=== PATIENT | male | born 1940 | race Caucasian/White ===

== ENCOUNTER → 2018-01-26 01:50 | Outpatient (CLI) | payer MEDICARE, SELFPAY ==
[2018-01-26 10:10] LABS: INR 2.2 (1.0-3.5); Prothrombin Time 21.2 sec (9.3-10.8)
== END ==
PROVIDERS: PCP Emergency Medicine; Visit Provider Emergency Medicine
DX: I48.91 Unspecified atrial fibrillation (principal); Z79.01 Long term (current) use of anticoagulants
CPT/HCPCS: 36415; 85610

== ENCOUNTER 2018-02-23 10:10 | Outpatient (CLI) | payer MEDICARE, SELFPAY ==
[2018-02-23 10:40] LABS: Prothrombin Time 19.5 sec (9.3-10.8)
== END 2018-02-23 10:30 ==
PROVIDERS: PCP Emergency Medicine; Visit Provider Emergency Medicine
DX: I48.91 Unspecified atrial fibrillation (principal); Z79.01 Long term (current) use of anticoagulants
CPT/HCPCS: 36415; 85610

== ENCOUNTER 2018-03-23 03:05 | Outpatient (CLI) | payer MEDICARE, SELFPAY ==
[2018-03-23 10:47] LABS: INR 2.4 (1.0-3.5); Prothrombin Time 22.8 sec (9.3-10.8)
== END 2018-03-23 03:25 ==
PROVIDERS: PCP Emergency Medicine; Visit Provider Emergency Medicine
DX: I48.91 Unspecified atrial fibrillation (principal); Z79.01 Long term (current) use of anticoagulants
CPT/HCPCS: 36415; 85610

== ENCOUNTER 2018-04-20 09:11 | Outpatient (CLI) | payer MEDICARE, SELFPAY ==
[2018-04-20 09:54] LABS: INR 1.8 (1.0-3.5); Prothrombin Time 16.8 sec (9.3-10.8)
== END 2018-04-20 09:31 ==
PROVIDERS: PCP Emergency Medicine; Visit Provider Emergency Medicine
DX: I48.91 Unspecified atrial fibrillation (principal); Z79.01 Long term (current) use of anticoagulants
CPT/HCPCS: 36415; 85610

== ENCOUNTER 2018-05-18 00:59 | Outpatient (CLI) | payer MEDICARE, SELFPAY ==
[2018-05-18 10:50] LABS: INR 1.7 (1.0-3.5); Prothrombin Time 16.7 sec (9.3-10.8)
== END 2018-05-18 01:19 ==
PROVIDERS: PCP Emergency Medicine; Visit Provider Emergency Medicine
DX: I48.91 Unspecified atrial fibrillation (principal); Z79.01 Long term (current) use of anticoagulants
CPT/HCPCS: 36415; 85610

== ENCOUNTER 2018-06-18 01:48 | Outpatient (CLI) | payer MEDICARE, SELFPAY ==
[2018-06-18 09:17] LABS: INR 2.5 (1.0-3.5); Prothrombin Time 25.4 sec (9.3-11.0)
== END 2018-06-18 02:08 ==
PROVIDERS: PCP Emergency Medicine; Visit Provider Emergency Medicine
DX: I48.91 Unspecified atrial fibrillation (principal); Z79.01 Long term (current) use of anticoagulants
CPT/HCPCS: 36415; 85610

== ENCOUNTER 2018-07-13 01:05 | Outpatient (CLI) | payer MEDICARE, SELFPAY ==
[2018-07-13 10:21] LABS: Prothrombin Time 19.8 sec (9.3-11.0)
== END 2018-07-13 01:25 ==
PROVIDERS: PCP Emergency Medicine; Visit Provider Emergency Medicine
DX: I48.91 Unspecified atrial fibrillation (principal); Z79.01 Long term (current) use of anticoagulants
CPT/HCPCS: 36415; 85610

== ENCOUNTER 2018-08-10 01:10 | Outpatient (CLI) | payer MEDICARE, SELFPAY ==
[2018-08-10 10:34] LABS: INR 2.4 (0.9-1.1); Prothrombin Time 23.8 sec (9.3-11.0)
== END 2018-08-10 01:30 ==
PROVIDERS: PCP Emergency Medicine; Visit Provider Emergency Medicine
DX: I48.91 Unspecified atrial fibrillation (principal); Z79.01 Long term (current) use of anticoagulants
CPT/HCPCS: 36415; 85610

== ENCOUNTER 2018-09-07 01:37 | Outpatient (CLI) | payer MEDICARE, SELFPAY ==
[2018-09-07 10:24] LABS: INR 1.9 (0.9-1.1); Prothrombin Time 19.2 sec (9.3-11.0)
== END 2018-09-07 01:57 ==
PROVIDERS: PCP Emergency Medicine; Visit Provider Emergency Medicine
DX: I48.91 Unspecified atrial fibrillation (principal); Z79.01 Long term (current) use of anticoagulants
CPT/HCPCS: 36415; 85610

== ENCOUNTER 2018-10-05 01:20 | Outpatient (CLI) | payer MEDICARE, SELFPAY ==
[2018-10-05 10:06] LABS: INR 1.9 (0.9-1.1); Prothrombin Time 19.5 sec (9.3-11.0)
== END 2018-10-05 01:40 ==
PROVIDERS: PCP Emergency Medicine; Visit Provider Emergency Medicine
DX: I48.91 Unspecified atrial fibrillation (principal); Z79.01 Long term (current) use of anticoagulants
CPT/HCPCS: 36415; 85610

== ENCOUNTER 2018-11-02 02:18 | Outpatient (CLI) | payer MEDICARE, SELFPAY ==
[2018-11-02 11:01] LABS: INR 1.8 (0.9-1.1); Prothrombin Time 18.4 sec (9.3-11.0)
== END 2018-11-02 02:38 ==
PROVIDERS: PCP Emergency Medicine; Visit Provider Emergency Medicine
DX: I48.91 Unspecified atrial fibrillation (principal); Z79.01 Long term (current) use of anticoagulants
CPT/HCPCS: 36415; 85610

== ENCOUNTER 2018-11-30 02:39 | Outpatient (CLI) | payer MEDICARE, SELFPAY ==
[2018-11-30 10:57] LABS: Prothrombin Time 20.6 sec (9.3-11.0)
== END 2018-11-30 02:59 ==
PROVIDERS: PCP Emergency Medicine; Visit Provider Emergency Medicine
DX: I48.91 Unspecified atrial fibrillation (principal); Z79.01 Long term (current) use of anticoagulants
CPT/HCPCS: 36415; 85610

== ENCOUNTER 2018-12-28 06:59 | Outpatient (CLI) | payer MEDICARE, SELFPAY ==
[2018-12-28 10:08] LABS: INR 1.9 (0.9-1.1); Prothrombin Time 19.3 sec (9.3-11.0)
== END 2018-12-28 07:19 ==
PROVIDERS: PCP Emergency Medicine; Visit Provider Emergency Medicine
DX: I48.91 Unspecified atrial fibrillation (principal); Z79.01 Long term (current) use of anticoagulants
CPT/HCPCS: 36415; 85610

== ENCOUNTER 2019-01-25 03:54 | Outpatient (CLI) | payer MEDICARE, SELFPAY ==
[2019-01-25 09:48] LABS: INR 1.9 (0.9-1.1); Prothrombin Time 19.4 sec (9.3-11.0)
== END 2019-01-25 04:14 ==
PROVIDERS: PCP Emergency Medicine; Visit Provider Emergency Medicine
DX: I48.91 Unspecified atrial fibrillation (principal); Z79.01 Long term (current) use of anticoagulants
CPT/HCPCS: 36415; 85610

== ENCOUNTER 2019-02-08 06:25 | Outpatient (CLI) | payer MEDICARE, SELFPAY ==
[2019-02-08 10:18] LABS: INR 2.7 (0.9-1.1); Prothrombin Time 27.7 sec (9.3-11.0)
== END 2019-02-08 06:45 ==
PROVIDERS: PCP Emergency Medicine; Visit Provider Emergency Medicine
DX: I48.91 Unspecified atrial fibrillation (principal); Z79.01 Long term (current) use of anticoagulants
CPT/HCPCS: 36415; 85610

== ENCOUNTER 2019-03-08 02:07 | Outpatient (CLI) | payer MEDICARE, SELFPAY ==
[2019-03-08 11:27] LABS: Prothrombin Time 19.6 sec (9.3-11.0)
== END 2019-03-08 02:27 ==
PROVIDERS: PCP Emergency Medicine; Visit Provider Emergency Medicine
DX: I48.91 Unspecified atrial fibrillation (principal); Z79.01 Long term (current) use of anticoagulants
CPT/HCPCS: 36415; 85610

== ENCOUNTER 2019-04-05 00:26 | Outpatient (CLI) | payer MEDICARE, SELFPAY ==
[2019-04-05 13:05] LABS: INR 1.9 (0.9-1.1); Prothrombin Time 18.8 sec (9.3-11.0)
== END 2019-04-05 00:46 ==
LOC: LBO 08:27 → LOS 09:22
PROVIDERS: PCP Emergency Medicine; Visit Provider Emergency Medicine
DX: I48.91 Unspecified atrial fibrillation (principal); Z79.01 Long term (current) use of anticoagulants
CPT/HCPCS: 36415; 85610

== ENCOUNTER 2019-05-03 01:53 | Outpatient (CLI) | payer MEDICARE, SELFPAY ==
[2019-05-03 11:40] LABS: INR 1.3 (0.9-1.1); Prothrombin Time 13.4 sec (9.3-11.0)
== END 2019-05-03 02:13 ==
PROVIDERS: PCP Emergency Medicine; Visit Provider Emergency Medicine
DX: I48.91 Unspecified atrial fibrillation (principal); Z79.01 Long term (current) use of anticoagulants
CPT/HCPCS: 36415; 85610

== ENCOUNTER 2019-05-17 01:27 | Outpatient (CLI) | payer MEDICARE, SELFPAY ==
[2019-05-17 10:52] LABS: INR 3.3 (0.9-1.1)
== END 2019-05-17 01:47 ==
PROVIDERS: PCP Emergency Medicine; Visit Provider Emergency Medicine
DX: I48.91 Unspecified atrial fibrillation (principal); Z79.01 Long term (current) use of anticoagulants
CPT/HCPCS: 36415; 85610

== ENCOUNTER 2019-05-24 07:00 | Outpatient (CLI) | payer MEDICARE, SELFPAY ==
[2019-05-24 13:49] LABS: Anion Gap 8.5 mmol/L (3-11); BUN 18 mg/dL (7-18); CO2 27.5 mmol/L (21.0-32.0); CREATININE 1.08 mg/dL (0.70-1.30); Calcium 9.2 mg/dL (8.5-10.1); Calculated LDL 124 mg/dL; Chloride 104 mmol/L (98-107); Cholesterol 199 mg/dL (<200); Glucose 111 mg/dL (74-106); HDL Cholesterol 42 mg/dL (40-60); Potassium 4.5 mmol/L (3.5-5.1); Sodium 140 mmol/L (136-145); Triglyceride 166 mg/dL (<150)
[2019-05-27 12:47] LABS: PSA, Screening 1.1 ng/mL (0.0-6.5)
== END 2019-05-24 07:20 ==
PROVIDERS: PCP Emergency Medicine; Visit Provider Emergency Medicine
DX: I10 Essential (primary) hypertension (principal); Z12.5 Encounter for screening for malignant neoplasm of prostate
CPT/HCPCS: 36415; 80048; 80061; 84153

== ENCOUNTER 2019-05-31 10:12 | Outpatient (CLI) | payer MEDICARE, SELFPAY ==
[2019-05-31 11:17] LABS: INR 2.9 (0.9-1.1); Prothrombin Time 28.3 sec (9.3-11.0)
== END 2019-05-31 10:32 ==
PROVIDERS: PCP Emergency Medicine; Visit Provider Emergency Medicine
DX: I48.91 Unspecified atrial fibrillation (principal); Z79.01 Long term (current) use of anticoagulants
CPT/HCPCS: 36415; 85610

== ENCOUNTER 2019-06-28 02:38 | Outpatient (CLI) | payer MEDICARE, SELFPAY ==
[2019-06-28 10:16] LABS: Prothrombin Time 34.5 sec (9.3-11.0)
[2019-06-28 10:20] LABS: INR 3.5 (0.9-1.1)
== END 2019-06-28 02:58 ==
PROVIDERS: PCP Emergency Medicine; Visit Provider Emergency Medicine
DX: I48.91 Unspecified atrial fibrillation (principal); Z79.01 Long term (current) use of anticoagulants
CPT/HCPCS: 36415; 85610

== ENCOUNTER 2019-07-12 00:12 | Outpatient (CLI) | payer MEDICARE, SELFPAY ==
[2019-07-12 09:34] LABS: INR 2.6 (0.9-1.1); Prothrombin Time 25.1 sec (9.3-11.0)
== END 2019-07-12 00:32 ==
PROVIDERS: PCP Emergency Medicine; Visit Provider Emergency Medicine
DX: I48.91 Unspecified atrial fibrillation (principal); Z79.01 Long term (current) use of anticoagulants
CPT/HCPCS: 36415; 85610

== ENCOUNTER 2019-08-09 00:56 | Outpatient (CLI) | payer MEDICARE, SELFPAY ==
[2019-08-09 09:33] LABS: Prothrombin Time 24.1 sec (9.3-11.0)
[2019-08-09 09:39] LABS: INR 2.4 (0.9-1.1)
== END 2019-08-09 01:16 ==
PROVIDERS: PCP Emergency Medicine; Visit Provider Emergency Medicine
DX: I48.91 Unspecified atrial fibrillation (principal); Z79.01 Long term (current) use of anticoagulants
CPT/HCPCS: 36415; 85610

== ENCOUNTER 2019-09-06 02:02 | Outpatient (CLI) | payer MEDICARE, SELFPAY ==
[2019-09-06 09:16] LABS: INR 2.4 (0.9-1.1); Prothrombin Time 23.4 sec (9.3-11.0)
== END 2019-09-06 02:22 ==
PROVIDERS: PCP Emergency Medicine; Visit Provider Emergency Medicine
DX: I48.91 Unspecified atrial fibrillation (principal); Z79.01 Long term (current) use of anticoagulants
CPT/HCPCS: 36415; 85610

== ENCOUNTER 2019-10-04 08:31 | Outpatient (CLI) | payer MEDICARE, SELFPAY ==
[2019-10-04 14:46] LABS: INR 2.1 (0.9-1.1); Prothrombin Time 20.7 sec (9.3-11.0)
== END 2019-10-04 08:51 ==
PROVIDERS: PCP Emergency Medicine; Visit Provider Emergency Medicine
DX: I48.91 Unspecified atrial fibrillation (principal); Z79.01 Long term (current) use of anticoagulants
CPT/HCPCS: 36415; 85610

== ENCOUNTER 2019-11-01 02:38 | Outpatient (CLI) | payer MEDICARE, SELFPAY ==
[2019-11-01 09:59] LABS: INR 2.9 (0.9-1.1); Prothrombin Time 28.7 sec (9.3-11.0)
== END 2019-11-01 02:58 ==
PROVIDERS: PCP Emergency Medicine; Visit Provider Emergency Medicine
DX: I48.91 Unspecified atrial fibrillation (principal); Z79.01 Long term (current) use of anticoagulants
CPT/HCPCS: 36415; 85610

== ENCOUNTER 2019-11-15 01:43 | Outpatient (CLI) | payer MEDICARE, SELFPAY ==
[2019-11-15 12:04] LABS: INR 3.7 (0.9-1.1); Prothrombin Time 36.4 sec (9.3-11.0)
== END 2019-11-15 02:03 ==
PROVIDERS: PCP Emergency Medicine; Visit Provider Emergency Medicine
DX: I48.91 Unspecified atrial fibrillation (principal); Z79.01 Long term (current) use of anticoagulants
CPT/HCPCS: 36415; 85610

== ENCOUNTER 2019-12-09 19:37 | Emergency (ER) | payer MEDICARE, SELFPAY ==
--- NOTE | 2019-12-09 19:31 | W.ED.GENAD ---
Discharge Plan Disposition Patient Disposition: HOME Condition: Good Discharge Details Chief Complaint: Trauma Clinical Impression: Humeral fracture Primary Care Provider: Aditya Perera ED Provider: Loretta Richards Home Meds and New Rx's Prescriptions: Continued diltiazem HCl [Cardizem CD] 240 mg capsule,extended release 24hr 240 mg PO DAILY Qty: 90 RF: 4 lisinopril 30 mg tablet 30 mg PO DAILY Qty: 90 RF: 4 metoprolol tartrate 25 mg tablet 25 mg PO DAILY Qty: 90 RF: 4 metoprolol tartrate 50 mg tablet 50 mg PO BID Qty: 180 RF: 4 warfarin [Coumadin] 5 mg tablet 5 mg PO QPM Qty: 200 RF: 8 Discharge Instructions Instructions: Arm Fracture in Adults (ED) Additional Instructions: Encourage rest, ice, elevation. Tylenol as needed for discomfort. Please continue to use a sling until evaluated by orthopedics. Please call orthopedics tomorrow, number listed below. They expect to see you in 1 week. If you develop increased pain, weakness, sensation changes or other new/worsening symptom please seek care urgently once again. Referrals: Angel Benítez MD [ [facility] STAFF PHYSICIAN] - Discharge Data Discharge Date/Time-TO BE ENTERED AT DEPARTURE: 12/09/19 21:40 Medical Decision Making Patient is a pleasant [id number] 79-year-old gentleman presenting today, brought in via EMS, chief complaint of right Arm pain. He reports that prior to arrival he had been working on a tractor. He reports the tractor began to roll over and he jumped from it and landed directly on his right shoulder. He indicates the midshaft humerus is area of maximal discomfort. He denies any other injury the time the incident. Denies striking his head, no loss of consciousness. Denies any neck or back pain. Denies any shortness of breath or chest pain. No nausea, vomiting. No incontinence. Denies any altered sensation. No previous injury or surgery to the affected arm. Patient is anticoagulated chronically on warfarin. On exam, patient is resting comfortably. He did receive 1 g of Tylenol by EMS and is declining any further pain management techniques here. No evidence of head trauma, intact neurologic exam, ANO x3. He has no pain with palpation about the spine, no paraspinal tenderness, full range of motion. No chest, abdomen or pelvic pain. No instability. Good range of motion of his lower extremities without any evidence of significant trauma. He does have 1 small area of ecchymosis on the anterior mid right thigh. No pain with movement over this area. 2+ distal pulses in all extremities. He is 5 and 5 strength in the right hand, is able to extend the wrist, no neuro deficits on the right side. Full range motion of the elbow. He indicates the midshaft humerus is area of maximal discomfort. He does have a small focal area of swelling on the right anterior shoulder. This is quite soft and consistent with likely hematoma although there is no discoloration associated with this area as of yet. Range of motion of the shoulder was not assessed given the patient discomfort in this area as well as finding on exam. I am concerned for fracture and do feel that humeral x-rays is appropriate. Based on history and exam, do not feel that further imaging is warranted at this time. X-rays reviewed by myself. I do note comminuted displaced humeral neck fracture. Will consult orthopedics. Again, patient does not have any evidence of neurovascular impairment. Consulted with Dr. Benítez discussed with the comminuted and displaced humeral fracture. He advised sling and follow-up with orthopedics in 1 week. Discussed this plan with the patient as well as his . Encourage rest, ice, elevation. We discussed home techniques to help with discomfort. We discussed activities that he should avoid during the acute phase. His will call orthopedics tomorrow morning to schedule follow-up appointment. They are given strict return precautions. All the questions concerns were addressed and they are agreement this plan. Patient has declined any further analgesics while here, they will continue with Tylenol to help with discomfort if needed. [facility] General Mode of arrival: EMS. Date/Time Provider Initiated Documentation: 12/09/19 19:47. Limitations to Documentation: no limitations. Information obtained by: patient, EMS and RN notes reviewed. History of Present Illness 79 year old M presents to the emergency department with the chief complaint of right shoulder pain, described as mild, Quality is described as aching, and is localized to the right and upper extremity. Patient reports no radiation. Patient started experiencing this minute(s) and it has been constant. Immobilization improves symptom(s), (minimal pain at this time) Movement worsens symptoms . Patient notes no other symptoms.. Patient did receive the following treatments prior to arrival, other (received tylenol from EMS) Related Data Home Medications Medication Instructions Recorded Confirmed diltiazem HCl 240 mg 240 mg PO DAILY #90 tab-cap 11/21/18 12/09/19 capsule,extended release 24 hr lisinopril 30 mg tablet 30 mg PO DAILY #90 tab-cap 11/21/18 12/09/19 metoprolol tartrate 25 mg tablet 25 mg PO DAILY #90 tab-cap 11/21/18 12/09/19 metoprolol tartrate 50 mg tablet 50 mg PO BID #180 tab-cap 12/10/18 12/09/19 warfarin 5 mg tablet 5 mg PO QPM #200 tab 05/31/19 12/09/19 Previous Rx's Medication Instructions Recorded diltiazem HCl 240 mg 240 mg PO DAILY #90 tab-cap 11/21/18 capsule,extended release 24 hr lisinopril 30 mg tablet 30 mg PO DAILY #90 tab-cap 11/21/18 metoprolol tartrate 25 mg tablet 25 mg PO DAILY #90 tab-cap 11/21/18 metoprolol tartrate 50 mg tablet 50 mg PO BID #180 tab-cap 12/10/18 warfarin 5 mg tablet 5 mg PO QPM #200 tab 05/31/19 Allergies Allergy/AdvReac Type Severity Reaction Status Date / Time amlodipine AdvReac Intermediate CAUSED Verified 12/09/19 19:54 POUNDING IN THE HEAD fenofibrate AdvReac Intermediate MYALGIAS Verified 12/09/19 19:54 hydrochlorothiazide AdvReac Mild FATIGUE Verified 12/09/19 19:54 Review of Systems Constitutional Constitutional: Reports as per HPI, Denies chills, Denies fatigue, Denies fever(s), Denies headache(s) and Denies weakness Eyes Eyes: Reports as per HPI, Denies blurry vision, Denies change in vision and Denies loss of vision ENT Ears, Nose, Mouth, and Throat: Denies abnormal hearing and Denies headache(s) Cardiovascular Cardiovascular: Reports as per HPI, Denies chest pain and Denies dyspnea Respiratory Respiratory: Reports as per HPI, Denies cough, Denies pain on inspiration, Denies pain with cough and Denies dyspnea Gastrointestinal Gastrointestinal: Reports as per HPI, Denies abdominal pain, Denies nausea and Denies vomiting Genitourinary Genitourinary: Reports as per HPI and Denies urinary incontinence Musculoskeletal Musculoskeletal: Reports as per HPI Integumentary/Breasts Skin/Breast: Reports as per HPI and Denies rash Neurologic Neurologic: Reports as per HPI, Denies abnormal hearing, Denies abnormal movements, Denies abnormal speech, Denies headache(s), Denies lack of coordination, Denies localized weakness, Denies loss of vision, Denies seizure-like activity, Denies paresthesias and Denies weakness Endocrine Endocrine: Denies fatigue [facility] Medical History Impacted cerumen of both ears (Acute) Memory change (Acute) Surgical History Repair of inguinal hernia 10/23/15; LEFT; [facility] Tonsillectomy and adenoidectomy Vasectomy Social History Smoking/Tobacco Use Status: Former Tobacco Use Alcohol Intake: current Alcohol Intake frequency: holidays/special occasions only Drug use: Never Substance use type: does not use Pets and animals: No Special rob needs: No Do you feel safe at home: Yes Do you feel safe in your relationship?: Yes Exam Const General: cooperative, healthy appearing, comfortable, no acute distress, well developed and well groomed Nutritional Appearance: average body habitus and well nourished Orientation: alert, awake and oriented x3 HENMT Head: normal to inspection, no palpable skull fracture, normocephalic and atraumatic Ears: hearing grossly normal bilaterally, external ears normal and TM's normal bilaterally General nose exam: external nose normal Mouth: oral mucosae normal, lip normal and tongue normal Throat: posterior oropharynx normal Eyes General: appearance normal, both eyes and all related structures Visual Stout: normal visual stout by confrontation Alignment and Position: alignment normal Periorbital: periorbital findings normal Eyelids: eyelids normal Conjunctivae: conjunctivae normal Pupils: PERRL EOM: EOM intact bilaterally Neck Neck: normal visual inspection, full ROM, no lymphadenopathy, no meningeal signs, trachea midline and supple Chest Chest: normal inspection of the chest, normal palpation of entire chest wall, no crepitus and no localized rib tenderness Resp Effort & Inspection: normal respiratory effort, able to speak in complete sentences and no respiratory distress Auscultation: clear to auscultation bilaterally, no rales, no rhonchi and no wheezes Cardio Rate: regular rate Rhythm: regular rhythm Heart Sounds: S1 normal and S2 normal GI Inspection: normal to inspection, no abdominal wall ecchymosis, no edema and non-distended Palpation: soft, no hepatosplenomegaly, not firm, no guarding, no pulsatile masses, not rigid and nontender Auscultation: normal bowel sounds Back/Spine/Pelvis Back: no CVA tenderness Cervical Spine: normal cervical lordosis and cervical ROM normal Thoracic/Lumbar Spine: thoracic and lumbar spine normal to inspection, thoraco-lumbar ROM normal, No thoraco-lumbar ROM limited, No thoraco-lumbar spasm and No thoracic spinal tenderness Pelvis: no pain with anterior-posterior compression and no pain with lateral compression Skin General skin exam: ecchymosis (small area of ecchymosis right anterior thigh) and other (soft tissue swelling right anterior shoulder) Neuro General: patient alert, patient awake, patient oriented x3, gait normal, tone normal and moves all extremities Cranial Nerves: CN's II-XI intact bilaterally Cognition: normal cognition Speech: speech normal Motor: muscle tone normal throughout and strength 5/5 throughout Sensory Exam: no sensory deficits noted (no saddle paresthesias) Extrem General: capillary refill normal, no pedal edema and no calf tenderness Right upper extremity: normal capillary refill, shoulder/upper arm Details: abnormal to inspection (as drawn below) Details: no obvious dislocation, no A-C step-off, no clavicle deformity and no loss of deltoid contour, tenderness Location: of the proximal humerus and over the biceps tendon, swelling and axillary nerve sensory function normal; no abrasions, no lacerations, no ecchymosis, no crepitus and no deformity, elbow/forearm Details: normal to inspection, normal ROM and distal pulses intact; no tenderness, no swelling, no unusual warmth, no abrasions, no lacerations, no ecchymosis and no deformity, wrist Details: normal to inspection, normal ROM, normal vascular exam and radial pulse present; no tenderness, no swelling, no unusual warmth, no abrasions, no lacerations, no ecchymosis, no crepitus and no deformity and hand Details: normal to inspection, normal capillary refill, neuromotor exam normal, neurosensory exam normal, vascular exam Details: radial pulse present and normal capillary refill, normal ROM of fingers and no swelling; no tenderness and no crepitus; abnormal to inspection (focal area of swelling right anterior swelling), ROM limited (will hold off on ranging until imaging is completed) and joint enlargement noted Left upper extremity: normal to inspection, full ROM and normal capillary refill Right lower extremity: normal to inspection (small area of ecchymosis right anterior thigh, no other abnormality), normal capillary refill and no joint enlargement; ROM limited Left lower extremity: normal to inspection, full ROM and normal capillary refill Psych Appearance: grossly normal and well kempt Mental Status: mental status grossly normal Speech and Movement: speech and movement normal
[2019-12-09 19:40] VITALS: BP 156/93; PULSE 99; RESP 16; TEMP 36.6; O2SAT 97
--- NOTE | 2019-12-09 19:45 | DI.RAD_ITS ---
EXAM: XR HUMERUS RT CLINICAL HISTORY: fall on lateral shoulder TECHNIQUE: COMPARISON: No exams were available for comparison FINDINGS: Three views were obtained. There is a comminuted fracture of the proximal humerus with moderate disp lacement the glenohumeral relationship is not well demonstrated. Additional radiographs of the shoul mimi may be obtained if clinically appropriate. IMPRESSION:
--- NOTE | 2019-12-09 20:40 | DI.VRAD_ITS ---
PROCEDURE INFORMATION: Exam: XR Right Humerus Exam date and time: 12/09/2019 8:14 PM Age: 79 years old Clinical indication: Injury or trauma; Initial encounter; Blunt trauma (contusions or hematomas; Right; Patient HX: Fall on lateral shoulder TECHNIQUE: Imaging protocol: XR Right humerus Views: 2 or more views. COMPARISON: No relevant prior studies available. FINDINGS: Bones/joints: Evaluation is limited by patient positioning. There is a comminuted fracture of the proximal right humerus. There is mild angulation and overriding. Mild to moderate displacement of the fracture fragments. No obvious dislocation. Soft tissues: Soft tissue swelling. IMPRESSION: 1. Comminuted proximal right humerus fracture. 2. Suggest dedicated shoulder x-ray for better evaluation of the glenohumeral joint. Dictated and Authenticated by: Julio Diane MD. Ordering:KWABENA Burgos MD
[2019-12-09 21:36] VITALS: BP 135/80; PULSE 104; RESP 16; O2SAT 95
== END 2019-12-09 21:40 | disposition home or self-care (01) ==
PROVIDERS: Emergency Provider Physician Assistant; PCP Emergency Medicine
DX: S42.291A Other displaced fracture of upper end of right humerus, initial encounter for closed fracture (principal); S70.11XA Contusion of right thigh, initial encounter; W28.XXXA Contact with powered lawn mower, initial encounter
CPT/HCPCS: 23600; 73060; L3650

== ENCOUNTER 2019-12-11 16:22 | Emergency (ER) | payer MEDICARE, SELFPAY ==
[2019-12-11 16:15] VITALS: BP 130/84; PULSE 106; RESP 18; TEMP 36.6; O2SAT 94
[2019-12-11 16:21] VITALS: RESP 15
[2019-12-11 17:18] LABS: INR 3.6 (0.9-1.1); Magnesium 1.9 mg/dL (1.8-2.4); Prothrombin Time 35.2 sec (9.3-11.0); TSH 0.99 uIU/mL (0.36-3.74); Troponin I < 0.05 ng/mL (<0.06)
[2019-12-11 17:20] LABS: ALT 14 U/L (16-63); AST 24 U/L (15-37); Albumin 3.5 g/dL (3.4-5.0); Alkaline Phosphatase 75 U/L (46-116); Anion Gap 9.9 mmol/L (3-11); BUN 21 mg/dL (7-18); Bilirubin Negative (Negative); Bilirubin, Total 1.2 mg/dL (0.2-1.0); Blood Negative (Negative); CO2 24.1 mmol/L (21.0-32.0); CREATININE 1.25 mg/dL (0.70-1.30); Chloride 101 mmol/L (98-107); Clarity Clear (Clear); Estimated GFR 55.72 (mL/min/1.73m2); Glucose 113 mg/dL (74-106); Glucose Negative (Negative); Ketones Negative (Negative); Leukocyte Esterase Negative (Negative); Nitrite Negative (Negative); Potassium 4.3 mmol/L (3.5-5.1); Sodium 135 mmol/L (136-145); Total Protein 7.6 g/dL (6.4-8.2); Urobilinogen 0.2 EU/dL (Up TO 0.2)
[2019-12-11 17:30] LABS: HCT 46.3 % (40.0-50.0); HGB 15.5 g/dL (13.5-17.5); Mean Corp. HGB Concentration 33.5 g/dL (32.0-36.0); Mean Corpuscular Hemoglobin 28.5 pg (27.0-33.0); Mean Corpuscular Volume 85.3 fL (80-95); Mean Platelet Volume 11.2 fL (8.0-11.0); Platelet Count 237 x1000/uL (130-400); RBC 5.43 m/cumm (4.50-6.00); RBC Distribution Width 14.5 % (11.8-14.1); White Blood Cell Count 11.92 k/cumm (4.4-10.8)
--- NOTE | 2019-12-11 17:30 | DI.CT_ITS ---
EXAM: CT HEAD WO CLINICAL HISTORY: Confusion, accident 2 days ago, anticoagulated TECHNIQUE: COMPARISON: No exams were available for comparison FINDINGS: Noncontrast cranial CT was performed. There is moderate generalized cerebral atrophy. There are sub tle patchy areas of decreased attenuation in periventricular white matter consistent with microvascul ar ischemic change, probable tiny bilateral lacunar infarcts are also noted and there is decreased at tenuation in sub insular cortex anteriorly also consistent with chronic vascular disease. No evidenc e of acute intracranial hemorrhage, mass effect, or midline shift. The orbital and temporal bone structures appear intact. Visualized mastoid air cells and paranasal s inuses are clear. IMPRESSION: No evidence of acute intracranial process.
--- NOTE | 2019-12-11 17:33 | DI.RAD_ITS ---
EXAM: XR CHEST 1V IN DI DEPT CLINICAL HISTORY: ams TECHNIQUE: COMPARISON: CR CHEST 2 VIEWS PA,LAT from 07/10/2013 FINDINGS: Portable AP view was obtained. The heart is not enlarged. There is a poor inspiration. There is qu estion of slightly increased pulmonary markings at left lung base in comparison with prior film of radha 2013, this may reflect scarring but possibility of acute atelectasis or patchy consolidation is not excluded. Follow-up radiographs requested when clinically appropriate. IMPRESSION:
--- NOTE | 2019-12-11 17:41 | DI.VRAD_ITS ---
PROCEDURE INFORMATION: Exam: XR Chest, 1 View Exam date and time: 12/11/2019 5:28 PM Age: 79 years old Clinical indication: AMS TECHNIQUE: Imaging protocol: XR of the chest Views: 1 view. COMPARISON: CR CHEST 2 VIEWS PA,LAT 07/10/2013 1:14 PM FINDINGS: Lungs: Clear lungs. Pleural space: No pneumothorax. No sizable pleural effusion. Heart/Mediastinum: No cardiomegaly. Bones/joints: Unremarkable. IMPRESSION: Clear lungs. Dictated and Authenticated by: Peter Mackenzie MD. Ordering:JANET Barcenas MD
--- NOTE | 2019-12-11 17:51 | DI.VRAD_ITS ---
PROCEDURE INFORMATION: Exam: CT Head Without Contrast Exam date and time: 12/11/2019 4:43 PM Age: 79 years old Clinical indication: AMS TECHNIQUE: Imaging protocol: Computed tomography of the head without contrast. Radiation optimization: All CT scans at this facility use at least one of these dose optimization techniques: automated exposure control; mA and/or kV adjustment per patient size (includes targeted exams where dose is matched to clinical indication); or iterative reconstruction. COMPARISON: No relevant prior studies available. FINDINGS: Brain: Age-related involutional changes and chronic microvascular ischemic disease. No evidence for acute transcortical infarct. No mass effect or midline shift. No extra-axial collection. No acute intracranial hemorrhage. Basal cisterns are patent. Ventricles: Normal. No ventriculomegaly. Bones/joints: Unremarkable. No acute fracture. Sinuses: Visualized sinuses are unremarkable. No fluid levels. Mastoid air cells: Visualized mastoid air cells are well aerated. Soft tissues: Unremarkable. IMPRESSION: No evidence for acute transcortical infarct, acute intracranial hemorrhage, or mass effect. Dictated and Authenticated by: Peter Mackenzie MD. Ordering:JANET Barcenas MD
--- NOTE | 2019-12-11 18:32 | ED.GENADUL_ITS ---
Discharge Plan Disposition Patient Disposition: HOME Condition: Stable Discharge Details Chief Complaint: AMS/LOC Clinical Impression: Confusion, Humeral fracture, Elevated INR Primary Care Provider: Aditya Perera ED Provider: Narinder Shay Home Meds and New Rx's Prescriptions: Continued diltiazem HCl [Cardizem CD] 240 mg capsule,extended release 24hr 240 mg PO DAILY Qty: 90 RF: 4 lisinopril 30 mg tablet 30 mg PO DAILY Qty: 90 RF: 4 metoprolol tartrate 25 mg tablet 25 mg PO DAILY Qty: 90 RF: 4 metoprolol tartrate 50 mg tablet 50 mg PO BID Qty: 180 RF: 4 warfarin [Coumadin] 5 mg tablet 5 mg PO QPM Qty: 200 RF: 8 Discharge Instructions Instructions: Arm Fracture in Adults (ED), Altered Mental Status (ED), Elevated INR (ED) Additional Instructions: At this time there is no obvious emergent process identified here in the ER. Your INR is elevated. Recommend holding your Coumadin dose tonight and tomorrow, you will need to have your INR rechecked on Monday and then be instructed as to how to begin taking your Coumadin once again. Please watch for new or worsening symptoms and return to the ER for any concerns. Please contact your primary care provider tomorrow for reevaluation on Monday. Please follow-up with orthopedics in 1 week as already scheduled. I have reached out to our care management team so that they will be in contact with you in the next 24 hours to help be sure that you are home resources and needs are met. Discharge Data Discharge Date/Time-TO BE ENTERED AT DEPARTURE: 12/11/19 19:20 Medical Decision Making 79-year-old gentleman who was evaluated in the ER 2 days ago, comminuted humeral fracture, presents today via EMS for intermittent increased confusion and increased right arm pain. Patient currently tells me his pain is minimal and he is otherwise unsure why he is here. He does remember the accident 2 days ago. After speaking with his it was more clear why he presented to the ER today. He had increasing pain as he was trying to get up out of the chair using his right arm because she feels as though he forgot it was actually broken. They are seeing orthopedics next week as already scheduled and are in the process of getting outpatient home health. She believes that his memory is getting worse on a progressive nature but may be slightly worse given his increased pain. Denies trauma since the evaluation 2 days ago. Denies any other symptoms. Given his slightly increased intermittent confusion, I do believe initiating a work-up is reasonable, CBC, CMP, Trope, EKG, head CT given he is anticoagulated, INR, urinalysis. As my examination states, he does have a hematoma and tenderness over his right mid-upper humerus region but is neuro, vascular, tendon intact. Certainly no signs of compartment syndrome. Laboratory values reveal a WBC of 11.92 hemoglobin 15.5 hematocrit 46.3 platelet count 237. INR is 3.6. Sodium 135 potassium 4.3 creatinine 1.25 estimated GFR 55.72. Mag 1.9. Troponin less than 0.05. TSH 0.99. Urinalysis does not reveal signs of infection. Head CT negative per radiology. Chest x-ray negative per radiology. Work-up here in the ER is rather unremarkable. I discussed the spine work-up with patient who only reports mild pain in his right arm. He was able to ambulate steadily throughout the ER. I contacted his once again and we discussed the work-up. She is relieved and feels as though she has the resources needed to care for him in the meantime. She already has orthopedic follow-up 1 week from today. Home health is getting involved tomorrow. I did explain to her that his INR was 3.6 and not taking a dose of Coumadin today and tomorrow would be recommended, outpatient follow-up on Monday for repeat INR nalini ting and then discussion of how to reinstate the Coumadin therapy. I also placed him on the care management list once again to see if there are any additional resources that may be beneficial to add on at home. At this time patient does not require any analgesia treatment. He is already wearing a sling. Patient and patient's comfortable with this plan and have no additional questions or concerns. We discussed options of transport home, she is happy to come pick him up. I did discuss the case and disposition with Dr. Capps prior to discharge. Medical Records Medical records reviewed: Yes I reviewed the patient's medical records. Imaging Data Radiologic Study: Attestation: I personally reviewed and interpreted this imaging study as follows: Radiologist's impression: Chest x-ray negative Radiologic Study #2: Attestation: I personally reviewed and interpreted this imaging study as follows: Imaging: CT Scan Radiologist's impression: Head CT no acute abnormalities Lab Data Lab results reviewed: Yes I reviewed the patient's lab results. Labs: Laboratory Tests Range/Units 12/11/19 12/11/19 12/11/19 16:30 16:30 16:30 WBC (4.4-10.8) k/cumm 11.92 H RBC (4.50-6.00) m/cumm 5.43 Hgb (13.5-17.5) g/dL 15.5 Hct (40.0-50.0) % 46.3 MCV (80-95) fL 85.3 MCH (27.0-33.0) pg 28.5 MCHC (32.0-36.0) g/dL 33.5 RDW (11.8-14.1) % 14.5 H Plt Count (130-400) x1000/uL 237 MPV (8.0-11.0) fL 11.2 H PT (9.3-11.0) sec 35.2 H INR (0.9-1.1) 3.6 H Sodium (136-145) mmol/L 135 L Potassium (3.5-5.1) mmol/L 4.3 Chloride (98-107) mmol/L 101 Carbon Dioxide (21.0-32.0) mmol/L 24.1 Anion Gap (3-11) mmol/L 9.9 BUN (7-18) mg/dL 21 H Creatinine (0.70-1.30) mg/dL 1.25 Estimated GFR/1.73 m2 (mL/min/1.73m2) 55.72 Glucose (74-106) mg/dL 113 H Calcium (8.5-10.1) mg/dL 9.0 Magnesium (1.8-2.4) mg/dL Total Bilirubin (0.2-1.0) mg/dL 1.2 H AST (15-37) U/L 24 ALT (16-63) U/L 14 L Alkaline Phosphatase (46-116) U/L 75 Troponin I (<0.06) ng/mL Total Protein (6.4-8.2) g/dL 7.6 Albumin (3.4-5.0) g/dL 3.5 TSH (0.36-3.74) uIU/mL Urine Color (Yellow) Urine Clarity (Clear) Urine pH (5-8) Ur Specific [place] (1.005-1.025) Urine Protein (Negative) mg/dL Urine Ketones (Negative) mg/dL Urine Blood (Negative) Urine Nitrite (Negative) Urine Bilirubin (Negative) Urine Urobilinogen (Up TO 0.2) EU/dL Ur Leukocyte Esterase (Negative) Urine Glucose (Negative) mg/dL Range/Units 12/11/19 12/11/19 16:30 16:30 WBC (4.4-10.8) k/cumm RBC (4.50-6.00) m/cumm Hgb (13.5-17.5) g/dL Hct (40.0-50.0) % MCV (80-95) fL MCH (27.0-33.0) pg MCHC (32.0-36.0) g/dL RDW (11.8-14.1) % Plt Count (130-400) x1000/uL MPV (8.0-11.0) fL PT (9.3-11.0) sec INR (0.9-1.1) Sodium (136-145) mmol/L Potassium (3.5-5.1) mmol/L Chloride (98-107) mmol/L Carbon Dioxide (21.0-32.0) mmol/L Anion Gap (3-11) mmol/L BUN (7-18) mg/dL Creatinine (0.70-1.30) mg/dL Estimated GFR/1.73 m2 (mL/min/1.73m2) Glucose (74-106) mg/dL Calcium (8.5-10.1) mg/dL Magnesium (1.8-2.4) mg/dL 1.9 Total Bilirubin (0.2-1.0) mg/dL AST (15-37) U/L ALT (16-63) U/L Alkaline Phosphatase (46-116) U/L Troponin I (<0.06) ng/mL < 0.05 Total Protein (6.4-8.2) g/dL Albumin (3.4-5.0) g/dL TSH (0.36-3.74) uIU/mL 0.99 Urine Color (Yellow) Yellow Urine Clarity (Clear) Clear Urine pH (5-8) 6.0 Ur Specific [place] (1.005-1.025) 1.020 Urine Protein (Negative) mg/dL Negative Urine Ketones (Negative) mg/dL Negative Urine Blood (Negative) Negative Urine Nitrite (Negative) Negative Urine Bilirubin (Negative) Negative Urine Urobilinogen (Up TO 0.2) EU/dL 0.2 Ur Leukocyte Esterase (Negative) Negative Urine Glucose (Negative) mg/dL Negative ECG Data Attestation: I personally reviewed and interpreted this ECG (s) as follows: Interpretation: EKG performed at 1628. A. fib, ventricular rate of 100. No STEMI. HPI General Mode of arrival: EMS . Date/Time Provider Initiated Documentation: 12/11/19 16:40 . Limitations to Documentation: no limitations and altered mental status . Information obtained by: patient, family and EMS . HPI Narrative: This is a 79-year-old gentleman with history of atrial fibrillation, chronic anticoagulation, hyperlipidemia, tension, recent lawnmower accident 2 days ago resulting in an ER visit and fractured humerus. HPI was obtained through patient, EMS, family. Patient was seen in the ER 2 days ago, diagnosed with humeral fracture, and placed due to a sling after orthopedic consultation. Family reports that they are scheduled to see orthopedics 1 week from today. They were set up with care management at the time of the accident and subsequently are in the process of getting home health resources. Patient was doing well yesterday however today patient's reports that his baseline memory impairment seem to be a little bit worse. He was forgetting that he had a broken arm and subsequently it was trying to get up out of the chair using his broken arm which caused increased pain. Throughout the day the combination of worsening memory and increased arm pain made her decide to call EMS for evaluation. There has been no new injury since that time of his ER visit. Patient at 1 point of the HPI tells me he remembers having the accident and injuring his arm and then later tells me he is unsure of what he is doing in the ER today. He denies striking his head, headache, visual changes, neck pain, chest pain, shortness of breath abdominal pain, nausea, vomiting, change in bowel or bladder habit. He does admit to mild discomfort to his right arm, worse with attempting to move his arm. He is wearing a sling. He denies any numbness, tingling, weakness in his extremities. Related Data Home Medications Medication Instructions Recorded Confirmed diltiazem HCl 240 mg 240 mg PO DAILY #90 tab-cap 11/21/18 12/11/19 capsule,extended release 24 hr lisinopril 30 mg tablet 30 mg PO DAILY #90 tab-cap 11/21/18 12/11/19 metoprolol tartrate 25 mg tablet 25 mg PO DAILY #90 tab-cap 11/21/18 12/11/19 metoprolol tartrate 50 mg tablet 50 mg PO BID #180 tab-cap 12/10/18 12/11/19 warfarin 5 mg tablet 5 mg PO QPM #200 tab 05/31/19 12/11/19 Previous Rx's Medication Instructions Recorded diltiazem HCl 240 mg 240 mg PO DAILY #90 tab-cap 11/21/18 capsule,extended release 24 hr lisinopril 30 mg tablet 30 mg PO DAILY #90 tab-cap 11/21/18 metoprolol tartrate 25 mg tablet 25 mg PO DAILY #90 tab-cap 11/21/18 metoprolol tartrate 50 mg tablet 50 mg PO BID #180 tab-cap 12/10/18 warfarin 5 mg tablet 5 mg PO QPM #200 tab 05/31/19 Allergies Allergy/AdvReac Type Severity Reaction Status Date / Time amlodipine AdvReac Intermediate CAUSED Verified 12/09/19 19:54 POUNDING IN THE HEAD fenofibrate AdvReac Intermediate MYALGIAS Verified 12/09/19 19:54 hydrochlorothiazide AdvReac Mild FATIGUE Verified 12/09/19 19:54 General Stated Complaint: AMS/LOC TARUN: 3 Review of Systems Constitutional Constitutional: Denies fatigue, Denies fever(s) and Denies weakness Eyes Eyes: Denies change in vision ENT Ears, Nose, Mouth, and Throat: Denies dizziness, Denies neck pain and Denies sore throat Cardiovascular Cardiovascular: Denies chest pain and Denies dyspnea Respiratory Respiratory: Denies cough and Denies dyspnea Gastrointestinal Gastrointestinal: Denies abdominal pain, Denies nausea and Denies vomiting Genitourinary Genitourinary: Denies dysuria Musculoskeletal Musculoskeletal: Denies back pain, Denies neck pain, Denies numbness and Denies tingling Integumentary/Breasts Skin/Breast: Denies rash Neurologic Neurologic: Denies dizziness, Reports memory loss, Denies numbness, Denies tingling and Denies weakness Psychiatric Psychiatric: Reports memory loss Endocrine Endocrine: Denies fatigue Hematologic/Lymphatic Hematologic/Lymphatic: Denies easy bleeding and Denies easy bruising COUNTS INCLUDE 234 BEDS AT THE [facility] Medical History Impacted cerumen of both ears (Acute) Memory change (Acute) Surgical History Repair of inguinal hernia 10/23/15; LEFT; [facility] Tonsillectomy and adenoidectomy Vasectomy Family History Mother Renal failure Stroke Father Alzheimer disease Myocardial infarction Son No problems noted. Daughter No problems noted. Social History Smoking/Tobacco Use Status: Former Tobacco Use Alcohol Intake: current Alcohol Intake frequency: holidays/special occasions only Drug use: Never Substance use type: does not use Pets and animals: No Special rob needs: No Do you feel safe at home: Yes Do you feel safe in your relationship?: Yes Exam Const General: cooperative, healthy appearing, comfortable and no acute distress Orientation: alert, awake, oriented to person, oriented to place and confused (Patient believes it is Monday, December,) [facility] Head: normal to inspection, normocephalic and atraumatic Face and sinus: normal facial exam Mouth: moist mucous membranes Throat: posterior oropharynx normal Eyes General: appearance normal, both eyes and all related structures Alignment and Position: alignment normal Periorbital: periorbital findings normal Eyelids: eyelids normal Conjunctivae: conjunctivae normal Sclera: sclerae normal Cornea: corneas normal Pupils: PERRL EOM: EOM intact bilaterally Direct ophthalmoscopy: normal light reflex Neck Neck: normal visual inspection, full ROM, no lymphadenopathy, no meningeal signs, trachea midline, supple and nontender Resp Effort & Inspection: normal respiratory effort and able to speak in complete sentences Auscultation: clear to auscultation bilaterally Cardio Rate: regular rate (92) Rhythm: abnormal rhythm irregularly irregular GI Inspection: normal to inspection Palpation: soft and nontender Back/Spine/Pelvis Back: No back tenderness Skin General skin exam: no rashes or lesions noted Neuro General: patient alert, patient awake and no focal motor deficits Cranial Nerves: CN's II-XI intact bilaterally Speech: speech normal Gait: normal gait Motor: muscle tone normal throughout and strength 5/5 throughout Sensory Exam: no sensory deficits noted Extrem Right upper extremity: normal capillary refill, shoulder/upper arm (Wearing a sling) Details: tenderness Location: of the proximal humerus, abnormal ROM Details: held in an abnormal fashion Details: in ADduction and ecchymosis (Proximal and mid humerus), elbow/forearm (Unremarkable), wrist (Unremarkable) and hand (Unremarkable) Left upper extremity: normal to inspection, full ROM and normal capillary refill Right lower extremity: normal to inspection, full ROM and normal capillary refill Left lower extremity: normal to inspection, full ROM and normal capillary refill Psych Appearance: grossly normal Mental Status: mental status grossly normal Course Vital Signs Vital signs: Vital Signs Temperature 36.6 C 12/11/19 16:15 Pulse 106 H 12/11/19 16:15 Respiratory Rate 18 12/11/19 16:15 Blood Pressure 130/84 12/11/19 16:15 Pulse Oximetry 94 L 12/11/19 16:15 Temperature 36.6 C 12/11/19 16:15 Temperature Source Tympanic 12/11/19 16:15 Pulse 106 H 12/11/19 16:15 Respiratory Rate 15 12/11/19 16:21 Respiratory Effort 12/11/19 16:21 Respiratory Depth Normal 12/11/19 16:21 Respiratory Pattern Normal 12/11/19 16:21 Blood Pressure 130/84 12/11/19 16:15 Blood Pressure Position Sitting 12/11/19 16:15 Pulse Oximetry 94 L 12/11/19 16:15 Oxygen Delivery Method Room Air 12/11/19 16:15 Oxygen Flow Rate 0 12/11/19 16:15 Pain Level 8 12/11/19 16:15 Lab/Test Results Lab/Test Results: Laboratory Tests Range/Units 12/11/19 12/11/19 12/11/19 16:30 16:30 16:30 WBC (4.4-10.8) k/cumm 11.92 H RBC (4.50-6.00) m/cumm 5.43 Hgb (13.5-17.5) g/dL 15.5 Hct (40.0-50.0) % 46.3 MCV (80-95) fL 85.3 MCH (27.0-33.0) pg 28.5 MCHC (32.0-36.0) g/dL 33.5 RDW (11.8-14.1) % 14.5 H Plt Count (130-400) x1000/uL 237 MPV (8.0-11.0) fL 11.2 H PT (9.3-11.0) sec 35.2 H INR (0.9-1.1) 3.6 H Sodium (136-145) mmol/L 135 L Potassium (3.5-5.1) mmol/L 4.3 Chloride (98-107) mmol/L 101 Carbon Dioxide (21.0-32.0) mmol/L 24.1 Anion Gap (3-11) mmol/L 9.9 BUN (7-18) mg/dL 21 H Creatinine (0.70-1.30) mg/dL 1.25 Estimated GFR/1.73 m2 (mL/min/1.73m2) 55.72 Glucose (74-106) mg/dL 113 H Calcium (8.5-10.1) mg/dL 9.0 Magnesium (1.8-2.4) mg/dL Total Bilirubin (0.2-1.0) mg/dL 1.2 H AST (15-37) U/L 24 ALT (16-63) U/L 14 L Alkaline Phosphatase (46-116) U/L 75 Troponin I (<0.06) ng/mL Total Protein (6.4-8.2) g/dL 7.6 Albumin (3.4-5.0) g/dL 3.5 TSH (0.36-3.74) uIU/mL Urine Color (Yellow) Urine Clarity (Clear) Urine pH (5-8) Ur Specific [place] (1.005-1.025) Urine Protein (Negative) mg/dL Urine Ketones (Negative) mg/dL Urine Blood (Negative) Urine Nitrite (Negative) Urine Bilirubin (Negative) Urine Urobilinogen (Up TO 0.2) EU/dL Ur Leukocyte Esterase (Negative) Urine Glucose (Negative) mg/dL Range/Units 12/11/19 12/11/19 16:30 16:30 WBC (4.4-10.8) k/cumm RBC (4.50-6.00) m/cumm Hgb (13.5-17.5) g/dL Hct (40.0-50.0) % MCV (80-95) fL MCH (27.0-33.0) pg MCHC (32.0-36.0) g/dL RDW (11.8-14.1) % Plt Count (130-400) x1000/uL MPV (8.0-11.0) fL PT (9.3-11.0) sec INR (0.9-1.1) Sodium (136-145) mmol/L Potassium (3.5-5.1) mmol/L Chloride (98-107) mmol/L Carbon Dioxide (21.0-32.0) mmol/L Anion Gap (3-11) mmol/L BUN (7-18) mg/dL Creatinine (0.70-1.30) mg/dL Estimated GFR/1.73 m2 (mL/min/1.73m2) Glucose (74-106) mg/dL Calcium (8.5-10.1) mg/dL Magnesium (1.8-2.4) mg/dL 1.9 Total Bilirubin (0.2-1.0) mg/dL AST (15-37) U/L ALT (16-63) U/L Alkaline Phosphatase (46-116) U/L Troponin I (<0.06) ng/mL < 0.05 Total Protein (6.4-8.2) g/dL Albumin (3.4-5.0) g/dL TSH (0.36-3.74) uIU/mL 0.99 Urine Color (Yellow) Yellow Urine Clarity (Clear) Clear Urine pH (5-8) 6.0 Ur Specific [place] (1.005-1.025) 1.020 Urine Protein (Negative) mg/dL Negative Urine Ketones (Negative) mg/dL Negative Urine Blood (Negative) Negative Urine Nitrite (Negative) Negative Urine Bilirubin (Negative) Negative Urine Urobilinogen (Up TO 0.2) EU/dL 0.2 Ur Leukocyte Esterase (Negative) Negative Urine Glucose (Negative) mg/dL Negative
[2019-12-11 18:33] VITALS: O2SAT 97
[2019-12-11 18:34] VITALS: BP 146/88; PULSE 111; O2SAT 99
--- NOTE | 2019-12-11 18:55 | NUR.NOTE ---
pt was able to ambulate with stand by assits. pt was confusts however this is baseline for the PT as stated by EMS. pt was stable on feet however PT wll need to be discharged with responcable adult Nursing Note:
[2019-12-11 19:31] VITALS: BP 146/88; PULSE 98; RESP 17; TEMP 37; O2SAT 99
== END 2019-12-11 19:20 | disposition home or self-care (01) ==
PROVIDERS: Emergency Provider Physician Assistant; PCP Emergency Medicine
DX: R41.0 Disorientation, unspecified (principal); S42.291A Other displaced fracture of upper end of right humerus, initial encounter for closed fracture; W28.XXXA Contact with powered lawn mower, initial encounter; R79.1 Abnormal coagulation profile; T45.515A Adverse effect of anticoagulants, initial encounter; Z79.01 Long term (current) use of anticoagulants
CPT/HCPCS: 36415; 80053; 85027; 93005; 99285; 70450; 71045; 81003; 83735; 84443; 84484; 85610; 93010

== ENCOUNTER 2019-12-17 08:36 | Outpatient (CLI) | payer MEDICARE, SELFPAY ==
--- NOTE | 2019-12-17 08:00 | DI.RAD_ITS ---
EXAM: XR SHOULDER RT COMPLETE 2+V CLINICAL HISTORY: right humerus fracture. TECHNIQUE: 2D digital imaging was performed. COMPARISON: CR,XR XR HUMERUS RT from 12/09/2019 CR,XR XR CHEST 1V IN DI DEPT from 12/11/2019 FINDINGS: There is again seen a comminuted fracture of the proximal metadiaphyseal region of the right humerus. The fracture is angulated with the apex directed medially. Fracture fragments are moderately displ aced. There does appear to be increased angulation of the fracture compared to the prior examination . Degenerative changes are seen at the acromioclavicular and glenohumeral joints. There is mild sof t tissue swelling at the proximal arm. IMPRESSION: Comminuted angulated fracture of the proximal right humerus as described above. There does appear to be mild increase in the angulation of the fracture since the prior examination from 12/09/2019. DATA REPOSITORY: RADIATION DOSE DELIVERED:
== END 2019-12-17 08:56 ==
PROVIDERS: PCP Emergency Medicine; Referring Provider Emergency Medicine; Visit Provider Student in an Organized Health Care Education/Training Program
DX: S42.301A Unspecified fracture of shaft of humerus, right arm, initial encounter for closed fracture; X58.XXXA Exposure to other specified factors, initial encounter
CPT/HCPCS: 99204; 99215; 73030

== ENCOUNTER 2019-12-22 04:08 | Observation (INO) | payer MEDICARE, SELFPAY ==
[2019-12-22] VITALS (7 sets, daily range): BP systolic 120–158; BP diastolic 69–96; PULSE 92–115; RESP 16–20; TEMP 36.1–37.1; O2SAT 96–100
--- NOTE | 2019-12-22 04:11 | W.ED.GENAD ---
Discharge Plan Discharge Details Chief Complaint: GenMedical Admit Date/Time: 12/22/19 12:11 Admit Provider: Sari Ramirez Attending Provider: Sari Ramirez Primary Care Provider: Aditya Perera ED Provider: Loretta Richards Discharge Data Discharge Date/Time-TO BE ENTERED AT DEPARTURE: 12/22/19 13:34 Medical Decision Making <Maury Cannon MD - Last Filed: 12/22/19 06:14> 79 yo male with hx of dementia, afib, who sustained a right humerus fracture after falling of a lawnmower in November and since then has had difficulties sleeping which has been causing him to sundown and become agitated. Since the fall he has had reassuring ct of his head and labs and despite this is becoming more agitated mainly at night. Tonight he as having trouble sleeping due to the arm and per his son Maury was agitated and he felt unsafe as did his so they called EMS as they feel he needs to be in rehab. The pt arrives and knows his name that he is at [facility] and the year is 2019 but is unsure of time. He has no focal neuro deficits. No pain other than in proximal right humerus. I do not feel there is an emergent underlying cause for his agitation other than underlying dementia and sundowning. I spoke with Morena from care management who is going to assess him this morning pt sleeping in no distress HD stable, awaiting care management Differential Diagnosis Differential Diagnosis: dementia, sundowning <THU Garcia - Last Filed: 12/22/19 16:44> Care transition myself from Dr. Cannon with care management assessment pending. Patient is known to myself. Please see Dr. Cannon's note regarding initial history and assessment. In brief, patient suffered a right humeral fracture 2 weeks ago. Since that time, since that he has been sundowning more and that he has been having difficulty at home. Has not been sleeping well. Has not suffered further trauma as far as we are aware. Family at this time does not feel that the patient is able to stay at home secondary to his confused state. Said that he has been escalating at home particularly at night. At this time, he is eating breakfast but is preferring to pace above department. CPS O has been ordered. Patient is wanting to go home. He is clearly confused. Urine shows small amount of blood. Care management spoke with family. At this point, patient will need placement. However, this is unable to be obtained today and inpatient admission would be appropriate. Patient is not safe at home and stabilization prior to being discharged home. Hospitalist is concerned that patient may have change in underlying medical condition, particularly given his recent fall. Requested CT and labs. Head CT was reviewed by radiologist FINDINGS: Brain: Hypodensity is seen in the periventricular cerebral white matter. This change is nonspecific but is most likely secondary to chronic ischemia within microvascular distributions. Goodman white matter distinction is maintained throughout the brain. No radiographic evidence of intracranial hemorrhage. Ventricles: Ventricles are enlarged on the basis of mild diffuse cerebral volume loss. Bones/joints: Unremarkable. No acute fracture. Sinuses: Visualized sinuses are unremarkable. No fluid levels. Mastoid air cells: Visualized mastoid air cells are well aerated. Soft tissues: Unremarkable. Other findings: No intra or extra-axial masses, lesions or collections. IMPRESSION: No radiographic evidence of acute intracranial pathology. Labs reviewed. No leukocytosis. H&H is stable. INR is elevated at 3.1. Patient is on warfarin. CMP significant for slight elevation in his ALT [place]. Otherwise without significant abnormality. Patient is eating and drinking. CPS so is at bed side. I did speak with the patient's son. He and I discussed the findings of the CT and labs. I did review primary care notes once again. Patient was evaluated approximately 2 weeks prior to his fall at which time he failed his Mini-Mental status exam as he was unable to draw a clock face. Family had noted the patient to have increased confusion prior to the fall. Patient has been easily redirectable and cooperative here. Consulted with Dr. Ramirez who agrees to admission.. HPI <Maury Cannon MD - Last Filed: 12/22/19 06:14> General Mode of arrival: EMS. Date/Time Provider Initiated Documentation: 12/22/19 04:11. Information obtained by: family. History of Present Illness 79 year old M presents to the emergency department with the chief complaint of agitated at home, described as moderate, No relieving factors improve symptom(s), No exacerbating factors reported . Patient did receive the following treatments prior to arrival, none Related Data Home Medications Medication Instructions Recorded Confirmed diltiazem HCl 240 mg 240 mg PO DAILY #90 tab-cap 11/21/18 12/22/19 capsule,extended release 24 hr lisinopril 30 mg tablet 30 mg PO DAILY #90 tab-cap 11/21/18 12/22/19 metoprolol tartrate 25 mg tablet 25 mg PO DAILY #90 tab-cap 11/21/18 12/22/19 metoprolol tartrate 50 mg tablet 50 mg PO BID #180 tab-cap 12/10/18 12/22/19 warfarin 5 mg tablet 5 mg PO QPM #200 tab 05/31/19 12/22/19 lorazepam 0.5 mg tablet 0.5 mg PO BID PRN #7 tab 12/16/19 12/22/19 quetiapine 25 mg tablet 25 mg PO QHS #30 tab 12/18/19 12/22/19 Previous Rx's Medication Instructions Recorded diltiazem HCl 240 mg 240 mg PO DAILY #90 tab-cap 11/21/18 capsule,extended release 24 hr lisinopril 30 mg tablet 30 mg PO DAILY #90 tab-cap 11/21/18 metoprolol tartrate 25 mg tablet 25 mg PO DAILY #90 tab-cap 11/21/18 metoprolol tartrate 50 mg tablet 50 mg PO BID #180 tab-cap 12/10/18 warfarin 5 mg tablet 5 mg PO QPM #200 tab 05/31/19 lorazepam 0.5 mg tablet 0.5 mg PO BID PRN #7 tab 12/16/19 quetiapine 25 mg tablet 25 mg PO QHS #30 tab 12/18/19 Allergies Allergy/AdvReac Type Severity Reaction Status Date / Time amlodipine AdvReac Intermediate CAUSED Verified 12/22/19 04:14 POUNDING IN THE HEAD fenofibrate AdvReac Intermediate MYALGIAS Verified 12/22/19 04:14 hydrochlorothiazide AdvReac Mild FATIGUE Verified 12/22/19 04:14 General TARUN: 3 Review of Systems <Maury Cannon MD - Last Filed: 12/22/19 06:14> All systems reviewed & are unremarkable except as noted in HPI and below Constitutional Constitutional: Denies chills and Denies fever(s) Cardiovascular Cardiovascular: Denies chest pain and Denies dyspnea Respiratory Respiratory: Denies cough and Denies dyspnea Gastrointestinal Gastrointestinal: Denies abdominal pain, Denies nausea and Denies vomiting Musculoskeletal Musculoskeletal: Denies joint swelling Psychiatric Psychiatric: Denies depression PFSH <Maury Cannon MD - Last Filed: 12/22/19 06:14> Medical History Impacted cerumen of both ears (Acute) Memory change (Acute) Surgical History Repair of inguinal hernia 10/23/15; LEFT; [facility] Tonsillectomy and adenoidectomy Vasectomy Family History Mother Renal failure Stroke Father Alzheimer disease Myocardial infarction Son No problems noted. Daughter No problems noted. Social History Smoking/Tobacco Use Status: Former Tobacco Use Alcohol Intake: current Alcohol Intake frequency: holidays/special occasions only Drug use: Never Substance use type: does not use Pets and animals: No Special rob needs: No Do you feel safe at home: Yes Do you feel safe in your relationship?: Yes Exam <Maury Cannon MD - Last Filed: 12/22/19 06:14> Const General: no acute distress Orientation: alert HENMT Head: normal to inspection Ears: external ears normal General nose exam: external nose normal Mouth: moist mucous membranes Eyes General: appearance normal, both eyes and all related structures Neck Neck: normal visual inspection Resp Effort & Inspection: normal respiratory effort and able to speak in complete sentences Cardio Rate: regular rate Skin General skin exam: no rashes or lesions noted Neuro General: patient alert Extrem General: capillary refill normal Psych Mental Status: mental status grossly normal Sign Out <Maury Cannon MD - Last Filed: 12/22/19 06:14> Sign Out Data: Sign Out Comment: follow up on care management recs Last updated by Maury Cannon MD at 12/22/19 07:22
[2019-12-22 07:55] LABS: Bilirubin Negative (Negative); Blood Trace-lysed (Negative); Clarity Clear (Clear); Glucose Negative (Negative); Ketones Negative (Negative); Leukocyte Esterase Negative (Negative); Nitrite Negative (Negative); Specific Gravity 1.025 (1.005-1.025); Urobilinogen 0.2 EU/dL (Up TO 0.2); pH 5.5 (5-8)
[2019-12-22 08:37] LABS: Bacteria Negative HPF (Negative); Casts 5-10 Hyaline LPF (Negative); Crystals Negative HPF (Negative); Epithelial Cells Rare HPF (Negative); Mucus Trace (Negative); WBC 0-2 HPF (0-5)
[2019-12-22 08:38] LABS: C & S Indicated? No
--- NOTE | 2019-12-22 09:01 | PDOC.ERCMIN ---
- If Service Date Differs Date of service: 12/22/19 Time of Service: 10:00 Care Management Initial Assess REASON FOR HOSPITALIZATION:: Recent PAST MEDICAL HISTORY/PAST SURGICAL HISTORY:: Humeral fracture, elevated INR, memory changes, mass in neck, tremor, chronic anticoagulation, unilateral inguinal hernia repair, basal cell carcinoma of right ear and dorsum of nose, A-fib, actinic keratosis, vasectomy, T&A, former smoker; quit 10 years ago. PREVIOUS FUNCTIONAL STATUS/SOCIAL/FAMILY SUPPORTS:: Herve resides in [place] with his , Viviane. The couple raised their children in [place], where both their son, Maury and their daughter reside with their families. 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 Herve's son, Maury reports his father was an active 79 year old male, and just purchased a new lawn tractor a few weeks ago. He reports Herve was functioning fine, driving and managing the couples home with some periods of forgetfulness. Herve reportedly jumped off the tractor when it started to slide a few weeks ago and broke his shoulder. Since that event, Maury reports his mentation has continued to decline. He describes intermittent confusion and agitation without provocation. He shares that Herve can be de-ecalated but decribes it as a switch that does not seem to have any pattern at this time. Maury reports that over the last two weeks, his sister and himself have been taking turns supporting their parents in [place] and commuting back to [facility]. Herve has had 2 recent ED visits, first on December 09, 2019 where he sustained a right humerus comminuted and displaced fracture related to falling off his riding lawnmower. The second ED visit was on December 11, 2019 related to increased confusion from baseline. Per spouse, Herve is having increased memory problems and forgets that he has a fractured right arm. Because of this he attempts to use his right arm and subsequently has intermittent right upper extremity pain. He has been taking Tylenol 325 mg every 4 hours for pain control with good effect. Maury also reports that Herve was prescribed night time medications for sundowning, and confusion, but shares that he believes the dosage was not administered correctly due to a misunderstanding. CURRENT FUNCTIONAL STATUS:: Herve continues to have periods of agitation and does not wish to remain at [facility] at this time. He is easily re-directed by staff and enjoys engaging with staff in conversation. Has patient been provided with info about the portal/API?: No Did the patient sign up for the portal?: No INSURANCE COVERAGE / FINANCIAL ISSUES:: Medicare. AARP CURRENT HOME/COMMUNITY SERVICES/EQUIPMENT:: [facility]; physical therapy services 2 times per week and home health services 2 times per week to assist with ADL care. New HH referral reportedly faxed to [facility] for PT/OT/aide and FLOOR COVERING PRINTER, 12/12/19. PRIMARY CARE PHYSICIAN:: Dr. Perera; next scheduled appointment 12/24/19 POTENTIAL DISCHARGE NEEDS:: Further evaluation, referral to [facility], Palliative consult, financial assistance application, possible Psychiatric consult, placement support; all dependent on presentation and MD recommendations. PATIENT/FAMILY EDUCATION NEEDS:: Family discussion around community based services, insurance limitations. ANTICIPATED BARRIERS TO DISCHARGE:: Patient presentation, reports of being unsafe to remain at home, lack of payer source for placement. TRANSPORTATION:: TBD by disposition. PLAN:: Herve will be admitted for observation, CM will send referral to [facility] once Herve is medically cleared. Anticipate Palliative consult with Herve and his family and CM support with financial considerations (financial asst, LTM, SWB1 packet) as well as placement coordination if needed.
[2019-12-22 10:30] LABS: Abs Immature Grans 0.02 k/cumm (0.0-0.09); Absolute Basophil Count 0.04 k/cumm (0.0-0.2); Absolute Eosinophil Count 0.04 k/cumm (0.0-0.7); Absolute Lymphocyte Count 0.83 k/cumm (1.2-3.4); Absolute Neutrophil Count 8.61 k/cumm (1.2-6.7); Basophils % 0.4; Eosinophils % 0.4; HCT 48.4 % (40.0-50.0); HGB 15.9 g/dL (13.5-17.5); Immature Grans % 0.2 %; Mean Corp. HGB Concentration 32.9 g/dL (32.0-36.0); Mean Corpuscular Hemoglobin 28.1 pg (27.0-33.0); Mean Corpuscular Volume 85.5 fL (80-95); Mean Platelet Volume 9.7 fL (8.0-11.0); Monocytes % 7.7; Neutrophils % 83.3; Platelet Count 301 x1000/uL (130-400); RBC 5.66 m/cumm (4.50-6.00); RBC Distribution Width 14.4 % (11.8-14.1); White Blood Cell Count 10.34 k/cumm (4.4-10.8)
--- NOTE | 2019-12-22 10:42 | DI.CT_ITS ---
EXAM: CT HEAD WO CLINICAL HISTORY: AMS. TECHNIQUE: Imaging Protocol: Axial computed tomography images with coronal and sagittal reformatted images were created and reviewed COMPARISON: CT CT HEAD WO from 12/11/2019 FINDINGS: Ventricles and Extra axial spaces: Normal in size and morphology for the patient's age. Hemorrhage: None. Cerebral parenchyma: Stable mild atrophy and mild white matter changes of small vessel disease. Midline shift: None. Brainstem/Cerebellum: Normal. Calvarium: Normal. Visualized Paranasal sinuses/Mastoids: Clear. Soft Tissues: Left posterior scalp lipoma. IMPRESSION: No acute intracranial process. RADIATION DOSE DELIVERED: Total DLP DATA REPOSITORY: All CT scans at this facility are submitted to the National Radiology Data Registry (NRDR) Dose Index Registry (DIR) with the [employer] (ACR). RADIATION OPTIMIZATION: All CT scans at this facility use at least one of these dose optimization te chniques: automated exposure control; mA and/or kV adjustment per patient size (includes targeted exa ms where dose is matched to clinical indication); or iterative reconstruction.
[2019-12-22 10:44] LABS: INR 3.1 (0.9-1.1); PTT Activated 38.9 sec (21.0-31.4); Prothrombin Time 29.9 sec (9.3-11.0)
[2019-12-22 10:46] LABS: ALT 22 U/L (16-63); AST 19 U/L (15-37); Albumin 3.3 g/dL (3.4-5.0); Alkaline Phosphatase 134 U/L (46-116); Anion Gap 6.2 mmol/L (3-11); BUN 20 mg/dL (7-18); Bilirubin, Total 1.1 mg/dL (0.2-1.0); CO2 28.8 mmol/L (21.0-32.0); CREATININE 1.27 mg/dL (0.70-1.30); Calcium 9.1 mg/dL (8.5-10.1); Chloride 100 mmol/L (98-107); Estimated GFR 54.71 (mL/min/1.73m2); Glucose 115 mg/dL (74-106); Potassium 4.3 mmol/L (3.5-5.1); Sodium 135 mmol/L (136-145); Total Protein 7.7 g/dL (6.4-8.2)
--- NOTE | 2019-12-22 11:26 | DI.VRAD_ITS ---
PROCEDURE INFORMATION: Exam: CT Head Without Contrast Exam date and time: 12/22/2019 9:53 AM Age: 79 years old Clinical indication: Altered mental status/memory loss; Confusion or disorientation; Patient HX: AMS; Additional info: PT unable to stop talking - motion May be seen on images TECHNIQUE: Imaging protocol: Computed tomography of the head without contrast. Radiation optimization: All CT scans at this facility use at least one of these dose optimization techniques: automated exposure control; mA and/or kV adjustment per patient size (includes targeted exams where dose is matched to clinical indication); or iterative reconstruction. COMPARISON: CT HEAD WO 12/11/2019 5:18 PM FINDINGS: Brain: Hypodensity is seen in the periventricular cerebral white matter. This change is nonspecific but is most likely secondary to chronic ischemia within microvascular distributions. Goodman white matter distinction is maintained throughout the brain. No radiographic evidence of intracranial hemorrhage. Ventricles: Ventricles are enlarged on the basis of mild diffuse cerebral volume loss. Bones/joints: Unremarkable. No acute fracture. Sinuses: Visualized sinuses are unremarkable. No fluid levels. Mastoid air cells: Visualized mastoid air cells are well aerated. Soft tissues: Unremarkable. Other findings: No intra or extra-axial masses, lesions or collections. IMPRESSION: No radiographic evidence of acute intracranial pathology. Dictated and Authenticated by: Junito Gates MD. Ordering:KWABENA Burgos MD
--- NOTE | 2019-12-22 12:40 | HPE_ITS ---
Date of service: 12/22/19 Time of Service: 12:41 Assessment and Plan Assessment and plan (1) Confusion: Start date: 12/22/19 Start time: 12:49 Status: Acute Assessment and plan: Prior to accident in November dx with dementia, broken humerus appeared to speed up the sundowning and make patient intermittently agitated and confused to point family feels he is unsafe at home. He was doing well throughout the day yesterday however they were not able to get him to calm down and relax overnight. He is not currently taking anything except tylenol for pain Ativan BID for agitation Started on seroquel recently for agitation and sleep. Unsure if he has been taken will order in hospital and monitor patient. (2) Agitation due to dementia: Start date: 12/22/19 Start time: 12:51 Status: Acute Assessment and plan: Worsening agitation as of late. See above. Patient will need placement CM to work on. Thank you. (3) Humeral fracture: Start date: 12/22/19 Start time: 12:51 Status: Acute Assessment and plan: In sling, followed by Dr. Johnson seen recently will need to be in sling for 6 weeks. May take off sling only at rest PT for pendulum exercises. (4) Atrial fibrillation: Start date: 12/22/19 Start time: 12:53 Status: Chronic Assessment and plan: On coumadin, INR 3.1 will hold today's dose. Continue Cardizem and metoprolol. Above case discussed with Dr. Ramirez who is in agreement. History of Present Illness History of Present Illness Chief Complaint: Confusion, agitation Narrative: 79 y.o male with newly diagnosed dementia, recent humeral fracture presents to emergency room with family after several days of agitation intermittently. Yesterday per family he was great all day, calm speaking with neighbors, however last night approx 9 pm they were not able to calm him down. He sustained a fall in November fracturing his humerus since this time he has progressing worsening sundowners with good and bad days. He was seen by Dr. Onofre on 12/16/2019 and given ativan, he was then again seen on 12/18/[address] Perera and given seroquel. He was having trouble sleeping last night due to agitation and arm pain, family felt he was unsafe for home so he was brought to the emergency department. CT head without acute pathology, labs unremarkable except INR 3.1 takes coumadin daily. He is confused and agitated, thinking he is on the third level of the bank, he can recall some facts at times such as year but tries to hide what is not known. Oriented to self and time. He will be admitted to observation for behaviour modification and medical management, for possible placement. Review of Systems All systems reviewed & are unremarkable except as noted in HPI and below [facility] Medical History Impacted cerumen of both ears (Acute) Memory change (Acute) Surgical History Repair of inguinal hernia 10/23/15; LEFT; [facility] Tonsillectomy and adenoidectomy Vasectomy Family History Mother Renal failure Stroke Father Alzheimer disease Myocardial infarction Son No problems noted. Daughter No problems noted. Social History Smoking/Tobacco Use Status: Former Tobacco Use Alcohol Intake: current Alcohol Intake frequency: holidays/special occasions only Drug use: Never Substance use type: does not use Pets and animals: No Special rob needs: No Do you feel safe at home: Yes Do you feel safe in your relationship?: Yes Meds Home Medications and Allergies Home Medications Medication Instructions Recorded Confirmed Type diltiazem HCl 240 mg 240 mg PO DAILY #90 tab-cap 11/21/18 12/22/19 Rx capsule,extended release 24 hr lisinopril 30 mg tablet 30 mg PO DAILY #90 tab-cap 11/21/18 12/22/19 Rx metoprolol tartrate 25 mg tablet 25 mg PO DAILY #90 tab-cap 11/21/18 12/22/19 Rx metoprolol tartrate 50 mg tablet 50 mg PO BID #180 tab-cap 12/10/18 12/22/19 Rx warfarin 5 mg tablet 5 mg PO QPM #200 tab 05/31/19 12/22/19 Rx lorazepam 0.5 mg tablet 0.5 mg PO BID PRN #7 tab 12/16/19 12/22/19 Rx quetiapine 25 mg tablet 25 mg PO QHS #30 tab 12/18/19 12/22/19 Rx Allergies Allergy/AdvReac Type Severity Reaction Status Date / Time amlodipine AdvReac Intermediate CAUSED Verified 12/22/19 04:14 POUNDING IN THE HEAD fenofibrate AdvReac Intermediate MYALGIAS Verified 12/22/19 04:14 hydrochlorothiazide AdvReac Mild FATIGUE Verified 12/22/19 04:14 Exam Const General: cooperative, healthy appearing and no acute distress Nutritional Appearance: average body habitus Orientation: alert, awake, not oriented x3, oriented to person and oriented to time Limitations: behavioral limitations HENMT Head: normal to inspection, normocephalic and atraumatic Ears: hearing grossly normal bilaterally General nose exam: nasal mucous membranes and turbinates normal Eyes General: appearance normal, both eyes and all related structures Sclera: sclerae normal Cornea: corneas normal Pupils: PERRL EOM: EOM intact bilaterally Neck Neck: normal visual inspection and full ROM Lymphatic: no lymphadenopathy noted Resp Effort & Inspection: normal respiratory effort Auscultation: clear to auscultation bilaterally Cardio Jugular venous pressure: no JVD Rhythm: abnormal rhythm and abnormal rhythm irregularly irregular GI Inspection: normal to inspection Palpation: soft and no hepatosplenomegaly Auscultation: normal bowel sounds General: deferred Back/Spine/Pelvis Back: no CVA tenderness Thoracic/Lumbar Spine: thoracic and lumbar spine normal to inspection Skin General skin exam: no rashes or lesions noted Trauma: no lacerations or abrasions Neuro General: patient alert, patient awake, not oriented x3 and does not move all extremities Cognition: abnormal cognition Speech: speech normal Extrem General: full ROM and no clubbing, cyanosis or edema Right upper extremity: shoulder/upper arm (broken humerus); ROM limited Right lower extremity: full ROM Left lower extremity: full ROM Psych Appearance: grossly normal Mental Status: other (agitated mood) Speech and Movement: speech and movement normal Mood: other (agitated mood) Results Labs Result diagrams: 12/22/19 10:20 12/22/19 10:20 Labs: Laboratory Results - last 24 hr 12/22/19 12/22/19 12/22/19 07:50 10:20 10:20 WBC 10.34 RBC 5.66 Hgb 15.9 Hct 48.4 MCV 85.5 MCH 28.1 MCHC 32.9 RDW 14.4 H Plt Count 301 MPV 9.7 Immature Gran % 0.2 Neutrophils % 83.3 Lymphocytes % 8.0 Monocytes % 7.7 Eosinophils % 0.4 Basophils % 0.4 Absolute Neutrophils 8.61 H Absolute Lymphocytes 0.83 L Absolute Monocytes 0.80 H Absolute Eosinophils 0.04 Absolute Basophils 0.04 PT INR APTT Sodium 135 L Potassium 4.3 Chloride 100 Carbon Dioxide 28.8 Anion Gap 6.2 BUN 20 H Creatinine 1.27 Estimated GFR/1.73 m2 54.71 Glucose 115 H Calcium 9.1 Total Bilirubin 1.1 H AST 19 ALT 22 Alkaline Phosphatase 134 H Total Protein 7.7 Albumin 3.3 L Urine Color Yellow Urine Clarity Clear Urine pH 5.5 Ur Specific [place] 1.025 Urine Protein Negative Urine Ketones Negative Urine Blood Trace-lysed H Urine Nitrite Negative Urine Bilirubin Negative Urine Urobilinogen 0.2 Ur Leukocyte Esterase Negative Urine RBC 5-10 H Urine WBC 0-2 Ur Epithelial Cells Rare Urine Crystals Negative Urine Bacteria Negative Urine Casts 5-10 hyaline Urine Mucus Trace Ur Culture Indicated? No Urine Glucose Negative 12/22/19 10:20 WBC RBC Hgb Hct MCV MCH MCHC RDW Plt Count MPV Immature Gran % Neutrophils % Lymphocytes % Monocytes % Eosinophils % Basophils % Absolute Neutrophils Absolute Lymphocytes Absolute Monocytes Absolute Eosinophils Absolute Basophils PT 29.9 H INR 3.1 H APTT 38.9 H Sodium Potassium Chloride Carbon Dioxide Anion Gap BUN Creatinine Estimated GFR/1.73 m2 Glucose Calcium Total Bilirubin AST ALT Alkaline Phosphatase Total Protein Albumin Urine Color Urine Clarity Urine pH Ur Specific [place] Urine Protein Urine Ketones Urine Blood Urine Nitrite Urine Bilirubin Urine Urobilinogen Ur Leukocyte Esterase Urine RBC Urine WBC Ur Epithelial Cells Urine Crystals Urine Bacteria Urine Casts Urine Mucus Ur Culture Indicated? Urine Glucose Last Vital Signs Temp 37.1 C 12/22/19 04:08 Pulse 101 H 12/22/19 04:08 Resp 16 12/22/19 04:35 BP 158/96 H 12/22/19 04:08 Pulse Ox 97 12/22/19 04:08 COVID-19 Screening Have you, or has anyone in your household, traveled outside of [place] in the last 14 days?: NO Had IN PERSON contact w/suspected or confirmed C-19 person: No
[2019-12-22] MEDS: Acetaminophen 325 MG TAB PO ×3 (13:49→21:31)
[2019-12-22] MEDS: Metoprolol 50 MG TAB PO (19:41)
[2019-12-22] MEDS: QUEtiapine 25 MG TAB PO (21:31)
[2019-12-23 04:54] VITALS: BP 133/84; PULSE 91; RESP 17; TEMP 35.3; O2SAT 98
[2019-12-23] MEDS: Acetaminophen 325 MG TAB PO ×3 (05:04→13:06)
[2019-12-23 07:22] VITALS: BP 139/91; PULSE 94; RESP 18; TEMP 36.5; O2SAT 97
[2019-12-23 08:49] LABS: INR 3.2 (0.9-1.1); Prothrombin Time 31.4 sec (9.3-11.0)
[2019-12-23] MEDS: Metoprolol 50 MG TAB PO (09:35)
[2019-12-23] MEDS: Lisinopril 10 MG TAB 30 MG PO (09:35)
[2019-12-23] MEDS: dilTIAZem CD 120 MG CAPCR 240 MG PO (09:38)
--- NOTE | 2019-12-23 10:27 | IN_ITS ---
Date of service: 12/23/19 Time of Service: 09:00 PT Notes Visit Reasons: CONFUSION, AGITATION Inpatient Physical Therapy Evaluation Date: 12/23/19 Referring Doctor: Vivian Ruelas NP PT Orders: PT CONSULT: Physical therapy should only do pendulum exercises with him and no other shoulder exercises Precautions: fall, standard Patient Profile/Admitting Diagnosis: Patient admitted 12/22/19 due to agitation in the presence of dementia. PMHX: recent proximal humerus fx, ~ 2 weeks ago. Patient has been evaluated by Dr. Johnson and is being managed in a sling. He's been instructed pendulums, per note from Dr. Johnson. Social History/Home Situation: Patient reports that he lives with his . He's unable to provide specifics on their home set up. Reports that he is independent at baseline. He does not use assistive device. Continues to drive independently. States that he was mowing his lawn with a new tractor a couple weeks ago when he lost control of the tractor, causing his humeral fx. Equipment Owned/DME: unable to obtain from patient Subjective: Herve states that his shoulder pain is manageable. He has not been doing any exercises with the arm, and does not recall instruction in pendulums. He wears his sling at all times. He denies history of falls. Objective: General Observation: Resting in bed with sling to RUE. No lines. Mental Status: A&O x3, however struggles when pressed for details. Unable to provide specifics on home set up. He is able to follow multistep commands consistently. Pain: Manageable ROM: Right Upper Extremity: AROM/PROM not assessed at the shoulder due to recent fracture. With modified pendulum in seated position, he tolerates approximately 30 degrees flexion. Elbow motion allows -10 extension to 100 degrees flexion. Forearm pronation and supination are full, with moderate pain in end range supination. Left Upper Extremity: WFL Right Lower Extremity: WFL Left Lower Extremity: WFL Strength: Right Upper Extremity: Not assessed Left Upper Extremity: Shoulder flexion 3/5 or greater. Biceps 5/5. Triceps 5/5. Right Lower Extremity: Patient is functionally able to demonstrate heel slide and SLR. Dorsiflexion is 5/5. Left Lower Extremity: Patient is functionally able to demonstrate heel slide and SLR. Dorsiflexion is 5/5. Sensation: Intact distally Bed Mobility/Transfers: Supine?sit: Supervision with HOB at 30 degrees Sit?stand: Supervision Stand?sit: Supervision Bed?chair: Supervision Gait: Patient ambulates 25 feet x 2 without assistive device, CGA. He has minor loss of balance during turning, which she is able to recover independently. Balance: Static Sitting: Normal Dynamic Sitting: Good Static Standing: Good Dynamic Standing: Fair Coordination: Moderately impaired with alternating toe tapping and [id number] Special Tests: 4 position balance test: 2/4 Mobility Limitations Standardized Measure [facility] 6 clicks Basic Mobility Inpatient Short Form: Raw Score: [20 CMS Score: 36% deficit Informed Consent/Education: Patient instructed in purpose of PT consult and plan of care. Assessment: Patient is a 79 year old male referred to physical therapy services with the diagnosis of declining mental status and agitation in the presence of subacute proximal right humerus fracture. Patient presents with clinical signs and symptoms consistent with diagnosis, as demonstrated by the following impairment level findings: 1. Decreased range of motion right upper extremity 2. Decreased strength right upper extremity 3. Decreased balance 4. Decreased coordination 5. Decreased safety awareness with declining mental status Impairments are contributing to the following functional limitations: 1. Decreased safety awareness 2. Decreased dynamic balance with increased fall risk based on 4- position balance test 3. Decreased functional use of right upper extremity due to subacute proximal humerus fracture Patient is assessed as Moderate 15147 complexity based on the following: History: 79-year-old male admitted due to agitation with dementia. Presenting with safety and mobility deficits, complicated by decreased safety awareness and cognition. Examination: Functional limitations as noted above Presentation: Evolving Decision Making: Moderate complexity Goals: Goals X1 week 1. Supine-Sit: Supervision 2. Sit-Supine: Supervision 3. Sit-Stand: Supervision 4. Stand-Sit: Supervision 5. Bed-Chair: Supervision 6. Chair-Bed: Supervision 7. Gait : Supervision x 50 feet Plan of Care/Treatment Plan: 1-2x/day, 7 days/week x 1 week. Plan of care has been reviewed with the C[employer]TING [employer]ACH[employer] providing the service under Physical Therapy direction. Initiate Physical Therapy intervention for strengthening, bed mobility, transfers, gait, stairs, balance training, use of assistive device. DISCHARGE RECOMMENDATIONS: Anticipate discharge home with family support. Would benefit from home health PT to address balance impairments and assistance with pendulum activities. TREATMENT CODE/TIME: 9:00-9:30 ([id number]) Eneida Gonzales, PT, DPT [facility]
--- NOTE | 2019-12-23 10:27 | PDOC.CMPRO ---
- If Service Date Differs Date of service: 12/23/19 Time of Service: 10:31 Care Management Progress Note S/O: Herve is alert he does appear to have some confusion and some unresolved feelings related to events prior to admission. He agrees to stay here at the hospital he is concerned that his family was giving him medication and would not tell him what it was. He states he is not sure what will happen when he goes home and states he cannot trust his family right now. CM provided support and listen to patients concerns. Patient is willing to remain here at [facility] for SB1 for PT/OT and medication management. CM reviewed the plan with his son over the phone. SB1 was reviewed with the family and patient all agree to have him remain at the hospital. Herve will have a palliative consult with . Family would like to resume Herve's care. A:Herve is 79 year old male admitted with recent Humeral fracture, admitted with confusion and agitation P: Herve agrees to swing bed level of care, his spouse and son also agree to the plan. Family will plan to take him home at the end of the week providing he continues to do well.
--- NOTE | 2019-12-23 12:22 | PT.INTREAT ---
Date of service: 12/23/19 Time of Service: 11:55 PT Notes Visit Reasons: CONFUSION, AGITATION Inpatient Physical Therapy Treatment Note [facility] Date: 12/23/2019 SUBJECTIVE: Pt reports that he is doing OK. OBJECTIVE: [] PAIN: reports very little pain in his arm, especially when still. BED MOBILITY/TRANSFERS Sit-stand: SBA Stand-sit: SBA GAIT Assistive Device: none Weight bearing: AT Assist: CGA Distance: 150' Deviation: cues for longer strides THEREX: performed pendulum ex while seated in fwd flex. He also performed AROM of wrist in all planes, elbow flex/extend and supination/pronation. ASSESSMENT: tolerated session well. No LOB during amb, but required cues to take longer strides. He is careful, slightly shuffled gait when turning tight corners. Reminders needed to try to keep shld relaxed as I ranged his shld (pendulum ex) He c/o slight increased tension in elbow with extension. Swelling noted in upper forearm. PLAN: continue following PT POC. TREATMENT CODE/TIME: 15 min. [id number]
--- NOTE | 2019-12-23 12:29 | W.PM.DS.N ---
Date of service: 12/23/19 Time of Service: 12:30 DS: Diagnosis Discharge Diagnosis (1) Confusion: Start date: 12/23/19 Start time: 12:30 Status: Acute Asessment and Plan: Waxes and wanes. Feels like himself today. Stop lorazepam as this was likely contributing to confusion per patient his family was giving him something that made him feel not like himself 2 little pills twice a day. This was most likely from ativan which is known to cause acute delirium and agitation in elderly patients. Being admitted to level 1 for PT and medication management. (2) Agitation due to dementia: Start date: 12/23/19 Start time: 12:30 Status: Acute Asessment and Plan: Periods of delusion and agitation when on certain topics. Otherwise continue to monitor for mood and adjust seroquel as need. 25 mg po - 50 mg po at HS (3) Humeral fracture: Start date: 12/23/19 Start time: 12:41 Status: Acute Asessment and Plan: Continue pain management, oral analgesics. Continue PT, cyrocuff (4) Atrial fibrillation: Start date: 12/23/19 Start time: 12:46 Status: Chronic Asessment and Plan: Continue home meds Above case discussed with Dr. Ramirez who is in agreement. Discharge Plan Disposition Patient Disposition: [facility] SWING BED LEVEL 1 Condition: Stable Discharge Details Chief Complaint: GenMedical Reason For Visit: CONFUSION, AGITATION Admit Date/Time: 12/22/19 12:11 Admit Provider: Sari Ramirez Attending Provider: Sari Ramirez Primary Care Provider: Aditya Perera ED Provider: [facility] Course Hospital Course: 79 y.o male with newly diagnosed dementia, recent humeral fracture presents to emergency room with family after several days of agitation intermittently on 12/22/2019. Per family he was great all day December 20, calm speaking with neighbors, however that night approx 9 pm they were not able to calm him down. He sustained a fall in November fracturing his humerus since this time he has progressing worsening owners with good and bad days. He was seen by Dr. Onofre on 12/16/2019 and given ativan, he was then again seen on 12/18/[address] Perera and given seroquel. He was having trouble sleeping due to agitation and arm pain, family felt he was unsafe for home so he was brought to the emergency department. CT head without acute pathology, labs unremarkable except INR 3.1 takes coumadin daily for Afib. He was confused and agitated, on initial presentation thinking he is on the third level of the bank. Oriented to self and time. Today he states he is feeling himself. He did get sleep, he is able to recall facts and knew that his family was giving him pills that the pills were making him not feel himself and they would not stop. He is not agitated. He is paranoid that his family is going to keep giving him the ativan so he does not feel safe and would like to stay until he is feeling better with medication management. He did well with 25 seroquel overnight. Will stop ativan, continue seroquel check daily INR, hold for 3.2 today. Patient will be swing bed level 1 as he does require PT for his broken humerus and medication adjustment possibly. Home Meds and New Rx's Prescriptions: No Action diltiazem HCl [Cardizem CD] 240 mg capsule,extended release 24hr 240 mg PO DAILY Qty: 90 RF: 4 lisinopril 30 mg tablet 30 mg PO DAILY Qty: 90 RF: 4 metoprolol tartrate 25 mg tablet 25 mg PO DAILY Qty: 90 RF: 4 metoprolol tartrate 50 mg tablet 50 mg PO BID Qty: 180 RF: 4 warfarin [Coumadin] 5 mg tablet 5 mg PO QPM Qty: 200 RF: 8 lorazepam 0.5 mg tablet 0.5 mg PO BID PRN (Reason: anxiety) Qty: 7 RF: 0 quetiapine 25 mg tablet 25 mg PO QHS Qty: 30 RF: 4 Discharge Instructions Activity:: Activity as Tolerated Equipment/Supplies:: No Equipment Needed Diet:: As Tolerated Discharge Orders Discharge Orders: Discharge Order (Routine); Ordered 12/23/19 Ordered By: Vivian Ruelas DS: Summary Status at Discharge Functional status at discharge: independent ambulation Overall status at discharge: patient is progressing back to baseline Mental Status: other (agitated mood) Speech and Movement: speech and movement normal Mood: other (agitated mood) Affect: normal affect Exam Const General: cooperative, healthy appearing and no acute distress Nutritional Appearance: average body habitus Orientation: alert, awake, not oriented x3, oriented to person and oriented to time Limitations: behavioral limitations HENMT Head: normal to inspection, normocephalic and atraumatic Ears: hearing grossly normal bilaterally General nose exam: nasal mucous membranes and turbinates normal Eyes General: appearance normal, both eyes and all related structures Sclera: sclerae normal Cornea: corneas normal Pupils: PERRL EOM: EOM intact bilaterally Neck Neck: normal visual inspection and full ROM Lymphatic: no lymphadenopathy noted Resp Effort & Inspection: normal respiratory effort Auscultation: clear to auscultation bilaterally Cardio Jugular venous pressure: no JVD Rhythm: abnormal rhythm and abnormal rhythm irregularly irregular GI Inspection: normal to inspection Palpation: soft and no hepatosplenomegaly Auscultation: normal bowel sounds General: deferred Back/Spine/Pelvis Back: no CVA tenderness Thoracic/Lumbar Spine: thoracic and lumbar spine normal to inspection Skin General skin exam: no rashes or lesions noted Trauma: no lacerations or abrasions Neuro General: patient alert, patient awake, not oriented x3 and does not move all extremities Cognition: abnormal cognition Speech: speech normal Extrem General: full ROM and no clubbing, cyanosis or edema Right upper extremity: shoulder/upper arm (broken humerus); ROM limited Right lower extremity: full ROM Left lower extremity: full ROM Psych Appearance: grossly normal Mental Status: other (agitated mood) Speech and Movement: speech and movement normal Mood: other (agitated mood) Affect: normal affect DS: Data Vitals/I&O Vitals and I&O: Vital Signs Temperature 36.5 C 12/23/19 07:22 Temperature Source Tympanic 12/23/19 07:22 Pulse 94 H 12/23/19 07:22 Pulse Rhythm Irregular 12/23/19 08:45 Respiratory Rate 18 12/23/19 07:22 Respiratory Effort Non-Labored 12/23/19 08:45 Respiratory Depth Normal 12/23/19 08:45 Respiratory Pattern Normal 12/23/19 08:45 Blood Pressure 139/91 H 12/23/19 07:22 Blood Pressure Position Sitting 12/22/19 04:08 Pulse Oximetry 97 12/23/19 07:22 Oxygen Delivery Method Room Air 12/23/19 07:22 Oxygen Flow Rate 0 12/23/19 07:22 Pain Level 0 12/23/19 10:39 Comment 12/23/19 07:22 Intake & Output 12/22/19 12/23/19 12/23/19 23:59 11:59 23:59 Intake Total 240 / 240 Output Total 600 / 600 300 / 300 Balance -360 / -360 -300 / -300 Weight 77.564 kg Intake: Oral 240 / 240 Output: Urine 600 / 600 300 / 300 Other: Urine Color Yellow Yellow Urine Appearance Clear Clear Urine Odor Normal Normal Voiding Methods Urinal Urinal Data Completed and Pending Completed studies during hospitalization [Text1]: COMPARISON: CT HEAD WO 12/11/2019 5:18 PM FINDINGS: Brain: Hypodensity is seen in the periventricular cerebral white matter. This change is nonspecific but is most likely secondary to chronic ischemia within microvascular distributions. Goodman white matter distinction is maintained throughout the brain. No radiographic evidence of intracranial hemorrhage. Ventricles: Ventricles are enlarged on the basis of mild diffuse cerebral volume loss. Bones/joints: Unremarkable. No acute fracture. Sinuses: Visualized sinuses are unremarkable. No fluid levels. Mastoid air cells: Visualized mastoid air cells are well aerated. Soft tissues: Unremarkable. Other findings: No intra or extra-axial masses, lesions or collections. IMPRESSION: No radiographic evidence of acute intracranial pathology. Labs on day of discharge: Labs from last 24 hours 12/23/19 12/22/19 12/22/19 08:31 13:11 12:22 PT 31.4 H INR 3.2 H Magnesium COVID-19 PCR Pending Cancelled Nasopharyn COVID-19 PCR Pending Cancelled Ref Test Perform Site Pending Cancelled 12/22/19 10:20 PT INR Magnesium 2.0 COVID-19 PCR Nasopharyn COVID-19 PCR Ref Test Perform Site [facility] Medical History Impacted cerumen of both ears (Acute) Memory change (Acute) Surgical History Repair of inguinal hernia 10/23/15; LEFT; [facility] Tonsillectomy and adenoidectomy Vasectomy Family History Mother Renal failure Stroke Father Alzheimer disease Myocardial infarction Son No problems noted. Daughter No problems noted. Social History Smoking/Tobacco Use Status: Former Tobacco Use Alcohol Intake: current Alcohol Intake frequency: holidays/special occasions only Drug use: Never Substance use type: does not use Pets and animals: No Special rob needs: No Do you feel safe at home: Yes Do you feel safe in your relationship?: Yes
--- NOTE | 2019-12-23 13:36 | NUR.NOTE ---
Nursing Note:1323 Patient discharged from observation status to swing bed status. Patient remains in room 210.
[2019-12-23 14:40] LABS: COVID-19 RT-PCR UVMMC Result Negative (Negative)
== END 2019-12-23 13:23 | disposition swing bed (61) ==
LOC: ER 12:44 → MS 12-23 13:04
PROVIDERS: Emergency Medicine; Nurse Practitioner Family; Admitting Provider Internal Medicine; Emergency Provider Physician Assistant; PCP Emergency Medicine; Visit Provider Internal Medicine
DX: R41.0 Disorientation, unspecified (principal); F03.90 Unspecified dementia, unspecified severity, without behavioral disturbance, psychotic disturbance, mood disturbance, and anxiety; S42.301D Unspecified fracture of shaft of humerus, right arm, subsequent encounter for fracture with routine healing; Z87.891 Personal history of nicotine dependence; I48.20 Chronic atrial fibrillation, unspecified; Z79.01 Long term (current) use of anticoagulants; Z79.899 Other long term (current) drug therapy; Z11.59 Encounter for screening for other viral diseases
CPT/HCPCS: 36415; 80053; 99217; 99220; 99285; U0003; 70450; 81003; 81015; 83735; 85025; 85610; 85730; 99284; G0378

== ENCOUNTER 2019-12-23 13:18 | Inpatient (IN) | payer MEDICARE, SELFPAY ==
--- NOTE | 2019-12-23 13:20 | W.PM.HP.N ---
Date of service: 12/23/19 Time of Service: 13:20 Assessment and Plan Assessment and plan (1) Agitation due to dementia: Start date: 12/23/19 Start time: 13:37 Status: Acute Assessment and plan: Appears to be improved with sleep and stopping the ativan, however he does show paranoia that his family will keep trying to give him ativan and he knows that it makes him different and he does not like taking it. He slept great last night, feels himself. Will keep him on SB 1 while adjusting medication and monitoring for agitation and confusion (2) Confusion: Start date: 12/23/19 Start time: 13:38 Status: Acute Assessment and plan: Likely due to dementia, see above. (3) Humeral fracture: Start date: 12/23/19 Start time: 13:38 Status: Acute Assessment and plan: Done prior to admission Follow up with Dr. Johnson in 6 weeks Continue Sling when mobilizing oral analgesics PT (4) Elevated INR: Start date: 12/23/19 Start time: 13:39 Status: Acute Assessment and plan: Daily INR, takes coumadin for Afib, on hold at this time for INR 3.2 Above case discussed with Dr. Ramirez who is in agreement. History of Present Illness History of Present Illness Chief Complaint: Confusion, agitation, humerus fx. Narrative: 79 y.o male with newly diagnosed dementia, recent humeral fracture presents to emergency room with family after several days of agitation intermittently on 12/22/2019. Per family he was great all day December 20, calm speaking with neighbors, however that night approx 9 pm they were not able to calm him down. He sustained a fall in November fracturing his humerus since this time he has progressing worsening sundowners with good and bad days. He was seen by Dr. Onofre on 12/16/2019 and given ativan, he was then again seen on 12/18/[address] Perera and given seroquel. He was having trouble sleeping due to agitation and arm pain, family felt he was unsafe for home so he was brought to the emergency department. CT head without acute pathology, labs unremarkable except INR 3.1 takes coumadin daily for Afib. He was confused and agitated, on initial presentation thinking he is on the third level of the bank. Oriented to self and time. Today he states he is feeling himself. He did get sleep, he is able to recall facts and knew that his family was giving him pills that the pills were making him not feel himself and they would not stop. He is not agitated. He is paranoid that his family is going to keep giving him the ativan so he does not feel safe and would like to stay until he is feeling better with medication management. He did well with 25 seroquel overnight. Will stop ativan, continue seroquel check daily INR, hold for 3.2 today. Patient will be swing bed level 1 as he does require PT for his broken humerus and medication adjustment possibly. Review of Systems All systems reviewed & are unremarkable except as noted in HPI and below [facility] Medical History Impacted cerumen of both ears (Acute) Memory change (Acute) Surgical History Repair of inguinal hernia 10/23/15; LEFT; [facility] Tonsillectomy and adenoidectomy Vasectomy Family History Mother Renal failure Stroke Father Alzheimer disease Myocardial infarction Son No problems noted. Daughter No problems noted. Social History Smoking/Tobacco Use Status: Former Tobacco Use Alcohol Intake: current Alcohol Intake frequency: holidays/special occasions only Drug use: Never Substance use type: does not use Pets and animals: No Special rob needs: No Do you feel safe at home: Yes Do you feel safe in your relationship?: Yes Meds Home Medications and Allergies Home Medications Medication Instructions Recorded Confirmed Type diltiazem HCl 240 mg 240 mg PO DAILY #90 tab-cap 11/21/18 12/23/19 Rx capsule,extended release 24 hr lisinopril 30 mg tablet 30 mg PO DAILY #90 tab-cap 11/21/18 12/23/19 Rx metoprolol tartrate 25 mg tablet 25 mg PO DAILY #90 tab-cap 11/21/18 12/23/19 Rx metoprolol tartrate 50 mg tablet 50 mg PO BID #180 tab-cap 12/10/18 12/23/19 Rx warfarin 5 mg tablet 5 mg PO QPM #200 tab 05/31/19 12/23/19 Rx lorazepam 0.5 mg tablet 0.5 mg PO BID PRN #7 tab 12/16/19 12/23/19 Rx quetiapine 25 mg tablet 25 mg PO QHS #30 tab 12/18/19 12/23/19 Rx Allergies Allergy/AdvReac Type Severity Reaction Status Date / Time amlodipine AdvReac Intermediate CAUSED Verified 12/22/19 04:14 POUNDING IN THE HEAD fenofibrate AdvReac Intermediate MYALGIAS Verified 12/22/19 04:14 hydrochlorothiazide AdvReac Mild FATIGUE Verified 12/22/19 04:14 Exam Narrative Exam Narrative: Const: AAOx 2, sitting up in chair. HENMT: Atraumatic, normocephalic, MMM EYES: perrla, EOMI Neck: no lymphedema, goiter or nodule Resp: LSC no wheezing, rhonchi or rales Cardio: Irregular irregular HR, GI: abd soft bsx 4 Back: no cva tenderness Skin: bruising to right arm and hand, right arm in sling, Extrem: right arm LROM, no clubbing edema or cyanosis to BLE Psych: Confusion that wax and wanes, more oriented today COVID-19 Screening Have you, or has anyone in your household, traveled outside of [place] in the last 14 days?: NO
--- NOTE | 2019-12-23 13:26 | TELEFU_ITS ---
Date of service: 12/23/19 Time of Service: 13:26 Nutritional Follow up NOTE: 79 year old male admitted with dementia, confusion and humeral fracture. BMI of 22 indicates weight wnl. Following Heart Healthy Diet with excellent intake (>75%). Meds/Labs reviewed. Elevated Bun noted, sodium low. Skin mostly intact, dentition adequate for regular texture. Estimated needs: 1925- 2310 kcal, 77-92 g protein, 2310 ml fluid. Currently meeting nutrient and fluid needs by mouth. Not at risk for nutritional decline at this time. Time Spent in Nutritional Counseling and Treatment: 0 time spent face to face
--- NOTE | 2019-12-23 13:37 | NUR.NOTE ---
Nursing Note:1323 Patient discharged from observation status to swing bed status. Patient remains in room 210.
[2019-12-23 15:15] VITALS: BP 97/59; PULSE 62; RESP 18; TEMP 36.6; O2SAT 97
--- NOTE | 2019-12-23 15:23 | PHA.REVIEW ---
Pharmacy Admission Review - Admission Clinical Review (Last Reviewed 12/23/19 @ 13:22 by Vivian Ruelas NP) Agitation due to dementia (Acute) Humeral fracture (Acute 12/09/19) Confusion (Acute) Elevated INR (Acute) amlodipine Adverse Reaction (Intermediate, Verified 12/22/19 04:14) CAUSED POUNDING IN THE HEAD fenofibrate Adverse Reaction (Intermediate, Verified 12/22/19 04:14) MYALGIAS hydrochlorothiazide Adverse Reaction (Mild, Verified 12/22/19 04:14) FATIGUE Height 6 ft 2 in Weight 77.564 kg - Renal Dosing Medications needing adjustments: Reviewed (Crcl ~51.7 mL/min current meds okay) - Anticoagulation DVT Prohphylaxis: N/A Therapeutic Anticoagulation: Reviewed Medications: Warfarin (INR-3.2 this morning, watch INR and for restart of warfarin) - Opiate Usage Evaluate Pain Scale/Pains Meds: N/A - Relevant Labs Electrolytes, C-Reactive P, ESR: Reviewed (Na 135 others within normal limits) - DM Control Insulin Dosing: N/A (BG 115) - Heart Failure/MA EF%, HOLLEY's, B-Blockers, Diuretics: Reviewed - BP Control If elevated: Reviewed (BP was 139/91 this morning prior morning meds) - Qtc Review If Elevated: N/A (QTc 438) - IV to PO Switch IV Medications: N/A - Home Meds Home Med List reviewed: Reviewed Relevent Home Meds Not ordered & why?: lorazepam (was discontinued prior to swinging see H&P), warfarin (INR-3.2) - Current meds Current Medication Order Review: Intervened (Talked to provider about acetaminophen dosing to prevent pt from getting over the max daily dose) - Comments Comments/Follow Ups: watch INR and for restart of warfarin
--- NOTE | 2019-12-23 15:26 | CMPROGNOTE_ITS ---
- If Service Date Differs Date of service: 12/23/19 Time of Service: 15:26 Care Management Progress Note S/O: Herve is alert he does appear to have some confusion and some unresolved feelings related to events prior to admission. He agrees to stay here at the hospital he is concerned that his family was giving him medication and would not tell him what it was. He states he is not sure what will happen when he goes home and states he cannot trust his family right now. CM provided support and listen to patients concerns. Patient is willing to remain here at [facility] for SB1 for PT/OT and medication management. CM reviewed the plan with his son over the phone. SB1 was reviewed with the family and patient all agree to have him remain at the hospital. Herve will have a palliative consult with . Family would like to resume Herve's care. A:Herve is 79 year old male admitted with recent Humeral fracture, admitted with confusion and agitation P: Herve agrees to swing bed level of care, his spouse and son also agree to the plan. Family will plan to take him home at the end of the week providing he continues to do well.
[2019-12-23 19:29] VITALS: BP 101/68; PULSE 81; RESP 18; TEMP 36.5; O2SAT 96
[2019-12-23] MEDS: Acetaminophen 325 MG TAB 650 MG PO (20:14)
[2019-12-23] MEDS: Metoprolol 50 MG TAB PO (20:14)
--- NOTE | 2019-12-23 20:47 | W.PALLCONSUL ---
Date of service: 12/23/19 Time of Service: 18:47 History of Present Illness Consults Consult date: 12/23/19 Requesting physician: Sari Ramirez Assessment and Plan Assessment and plan (1) Humeral fracture: Status: Acute (2) Agitation due to dementia: Status: Acute Assessment and plan: Seroquel has been helpful. I would continue and also increase if needed (3) Palliative care encounter: Status: Acute Assessment and plan: Regarding Code Status: He repeatedly said that he wouldn't want CPR and intubation. Although he knew the date and where he was, he didn't have insight to make meaningful choices on his CODE status. He would need an assigned guardian to make these decisions. I will speak with his to get her perspective on what he would want, etc. I didn't find an advance directive on file. There may be one his could locate. I have spent more than 50% of time in counseling with this patient. Review of Systems Narrative: Herve stated that he didn't have any complaints. He coyly stated that he wish he had some since he was in a hospital. [facility] Medical History Impacted cerumen of both ears (Acute) Memory change (Acute) Surgical History Repair of inguinal hernia 10/23/15; LEFT; [facility] Tonsillectomy and adenoidectomy Vasectomy Family History Mother Renal failure Stroke Father Alzheimer disease Myocardial infarction Son No problems noted. Daughter No problems noted. Social History Smoking/Tobacco Use Status: Former Tobacco Use Alcohol Intake: current Alcohol Intake frequency: holidays/special occasions only Drug use: Never Substance use type: does not use Pets and animals: No Special rob needs: No Do you feel safe at home: Yes Do you feel safe in your relationship?: Yes Exam Narrative Exam Narrative: Sitting in a chair with his legs stylishly crossed. He answered many of my questions and those he couldn't he used diversion technigues to explain why he couldn't answer the questions. He was always cooperative and gentlemanly. Neck Neck: no lymphadenopathy Carotids: normal carotid upstroke Resp Effort & Inspection: normal respiratory effort and able to speak in complete sentences Auscultation: clear to auscultation bilaterally and abnormal I/E ratio Cardio Rhythm: regular rhythm Heart Sounds: murmur GI Palpation: soft and no hepatosplenomegaly Auscultation: normal bowel sounds Psych Appearance: well kempt Speech and Movement: speech clear Mood: expansive Affect: animated Attitude: cooperative and guarded Thought Process: confabulating and loose association Thought Content: delusions Insight: poor Judgment: poor Results Last Vital Signs Temp 97.7 F 12/23/19 19:29 Pulse 81 12/23/19 19:29 Resp 18 12/23/19 19:29 BP 101/68 12/23/19 19:29 Pulse Ox 96 12/23/19 19:29
[2019-12-23] MEDS: QUEtiapine 25 MG TAB PO (21:33)
[2019-12-24 03:49] VITALS: BP 128/75; PULSE 72; RESP 18; TEMP 36.7; O2SAT 98
[2019-12-24 07:27] LABS: INR 2.6 (0.9-1.1); Prothrombin Time 25.3 sec (9.3-11.0)
[2019-12-24 07:55] VITALS: BP 150/79; PULSE 101; RESP 19; TEMP 35.6; O2SAT 99
[2019-12-24] MEDS: Lisinopril 10 MG TAB 30 MG PO (08:50)
[2019-12-24] MEDS: Acetaminophen 500 MG TAB 1000 MG PO ×3 (08:51→19:55)
[2019-12-24] MEDS: dilTIAZem CD 120 MG CAPCR 240 MG PO (08:51)
[2019-12-24] MEDS: Metoprolol 50 MG TAB PO ×2 (08:52→19:55)
--- NOTE | 2019-12-24 10:00 | PT.INDS ---
Date of service: 12/23/19 Time of Service: 16:00 PT Notes Visit Reasons: AGITATION, CONFUSION, HUMERUS FX Date: 12/23/19 Treatment Dates: 12/23/19 (2 sessions) Referring Doctor: Vivian Ruelas NP PT Orders: PT CONSULT: Physical therapy should only do pendulum exercises with him and no other shoulder exercises THIS DOCUMENT SERVES A SUMMARY OF CARE. NO ADDITIONAL CHARGES BILLED BASED ON THIS DOCUMENTATION. Precautions: fall, standard Patient Profile/Admitting Diagnosis: Patient admitted 12/22/19 due to agitation in the presence of dementia. He was seen for 2 PT sessions, then transitioned to Swing Bed level of care. PMHX: recent proximal humerus fx, ~ 2 weeks ago. Patient has been evaluated by Dr. Johnson and is being managed in a sling. He's been instructed pendulums, per note from Dr. Johnson. Social History/Home Situation: Patient reports that he lives with his . He's unable to provide specifics on their home set up. Reports that he is independent at baseline. He does not use assistive device. Continues to drive independently. States that he was mowing his lawn with a new tractor a couple weeks ago when he lost control of the tractor, causing his humeral fx. Equipment Owned/DME: unable to obtain from patient Subjective: None obtained Objective: ROM: Right Upper Extremity: AROM/PROM not assessed at the shoulder due to recent fracture. With modified pendulum in seated position, he tolerates approximately 30 degrees flexion. Elbow motion allows -10 extension to 100 degrees flexion. Forearm pronation and supination are full, with moderate pain in end range supination. Left Upper Extremity: WFL Right Lower Extremity: WFL Left Lower Extremity: WFL Strength: Right Upper Extremity: Not assessed Left Upper Extremity: Shoulder flexion 3/5 or greater. Biceps 5/5. Triceps 5/5. Right Lower Extremity: Patient is functionally able to demonstrate heel slide and SLR. Dorsiflexion is 5/5. Left Lower Extremity: Patient is functionally able to demonstrate heel slide and SLR. Dorsiflexion is 5/5. Sensation: Intact distally Bed Mobility/Transfers: Supine?sit: Supervision with HOB at 30 degrees Sit?stand: SBA Stand?sit: SBA Bed?chair: SBA Gait: Patient demonstrated ability to ambulate 150' with CGA and without assistive device. Balance: Static Sitting: Normal Dynamic Sitting: Good Static Standing: Good Dynamic Standing: Fair Coordination: Moderately impaired with alternating toe tapping and [id number] Assessment: Patient is a 79 year old male referred to physical therapy services with the diagnosis of declining mental status and agitation in the presence of subacute proximal right humerus fracture. Patient presented with mobility limitations based on diagnosis. He made improvements in mobility, although requires continued PT intervention prior to returning home. He is appropriate for continued PT services on Swing Bed status, and will be discharged from PT services in acute care setting. Goals: Goals X1 week 1. Supine-Sit: Supervision (met) 2. Sit-Supine: Supervision(met) 3. Sit-Stand: Supervision(met) 4. Stand-Sit: Supervision(met) 5. Bed-Chair: Supervision(met) 6. Chair-Bed: Supervision(met) 7. Gait : Supervision x 50 feet (progressing toward) Plan of Care/Treatment Plan: Discharge from PT in acute care setting with recommendation for continued PT in Swing Bed level of care. DISCHARGE RECOMMENDATIONS: Continued PT during Swing Bed stay. TREATMENT CODE/TIME: none Eneida Gonzales, PT, DPT [facility]
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
--- NOTE | 2019-12-24 13:37 | CM.SWINGPC ---
- If Service Date Differs Date of service: 12/24/19 Time of Service: 15:07 Swingbed Plan of Care Plan of care: SWING BED PROGRAM ACTIVITIES/DISCHARGE PLAN OF CARE ACTIVITIES PLAN Date:12/24/2019 Identified Need: Individual activities Intervention/Plan:activity cart, visits with his spouse, television in the room, telephone in the room to be able to talk with his family, and music tablet. His spouse will bring in his tablet from home for activity. Initials ANGIE DISCHARGE PLAN Date:12/24/2019 Identified Need: Strength and return to baseline level of functioning. Fracture of the right humerus Psychiatric stabilization. Intervention/Plan: PT and OT while remains in swing bed awaiting a bed at [facility] if accepted will transfer down and take the patient in return once stabilizations has occurred. Initials ANGIE
--- NOTE | 2019-12-24 13:38 | CMSA_ITS ---
- If Service Date Differs Date of service: 12/24/19 Time of Service: 14:37 SB Psychosocial/Act.Assessment - Hospital Admission Admission Date: 12/23/19 Admission From:: Direct from observation to SB1 Diagnosis:: Confusion and aggitation - Swing Bed Admission Swing Bed Admit Date:: 12/23/19 Swing Bed Level of Care: Level 1/SNF - Social Supports PREVIOUS FUNCTIONAL STATUS/SOCIAL/FAMILY SUPPORTS:: Herve resides in [place] with his , Viviane. The couple raised their children in [place], where both their son, Maury and their daughter reside with their families. 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 Herve's son, Maury reports his father was an active 79 year old male, and just purchased a new lawn tractor a few weeks ago. He reports Herve was functioning fine, driving and managing the couples home with some periods of forgetfulness. Herve reportedly jumped off the tractor when it started to slide a few weeks ago and broke his shoulder. Since that event, Maury reports his mentation has continued to decline. He describes intermittent confusion and agitation without provocation. He shares that Herve can be de-ecalated but decribes it as a switch that does not seem to have any pattern at this time. Maury reports that over the last two weeks, his sister and himself have been taking turns supporting their parents in [place] and commuting back to [facility]. Herve has had 2 recent ED visits, first on December 09, 2019 where he sustained a right humerus comminuted and displaced fracture related to falling off his riding lawnmower. The second ED visit was on December 11, 2019 related to increased confusion from baseline. Per spouse, Herve is having increased memory problems and forgets that he has a fractured right arm. Because of this he attempts to use his right arm and subsequently has intermittent right upper extremity pain. He has been taking Tylenol 325 mg every 4 hours for pain control with good effect. Maury also reports that Herve was prescribed night time medications for sundowning, and confusion, but shares that he believes the dosage was not administered correctly due to a misunderstanding. - Prior to Admission Living Arrangements/Environment Prior to Admission:: Herve lives with his spouse they have two children whom live in [place]. He is at baseline independent he is able to go in and out of his home as well care for himself - Education Highest Grade Completed:: 12 Special Education/Training:: Vocation - Work History Employment Status:: Retired - [place]: Yes 's Spouse: No - Benefits Financial: Social Security, Medicare - Worship Active Gnosticism Member:: Yes Gnosticism Affliation: [facility] Herve is a [employer] of the [employer] Will Gnosticism Members or Wellness Assistant Visit:: No Importance of Stephanie:: Important - Advance Directives for Healthcare Advance Directives for Healthcare: Advance Directives Advance Directive Agent: Viviane and if not available his son and daughter - Interests Hobbies:: Fishing, chopping wood, gardening, grand children Outdoor Activities:: Fishing, gardening - Present Functional Status Physical Abilities:: Strong and independent at baseline Cognitive:: Confused and paranoid Communication:: Confused at time he has been able to articulate his needs Sensory Systems: Impaired sight and hearing Behavior:: Alert and engaged when PATEL enters the room he does appear confused at times and paranoid - Medical History PAST MEDICAL HISTORY/PAST SURGICAL HISTORY:: Humeral fracture, elevated INR, memory changes, mass in neck, tremor, chronic anticoagulation, unilateral inguinal hernia repair, basal cell carcinoma of right ear and dorsum of nose, A- fib, actinic keratosis, vasectomy, T&A, former smoker; quit 10 years ago. General Health:: Fair fracture of the right humerous Past Psychiatric Treatment:: None - Admission Data Reason for Swing Bed Admission:: Safe discharge plan, PT and OT to assess function and return to prior level of function prior to fractured humerous Discharge Plan:: [facility] has been contacted for geriatric psych stablization Assessment: Herve is unable to return home at this time due to safety concerns. He will be placed in SB1 for assessment PT and OT while awaiting for disposition. has faxed a referral to [facility] for stabelization. Family would like to have him at home if medication management can be achieved. Pilot Plant Supervisor: Urszula De La Paz Date Assessment was completed:: 12/23/19
--- NOTE | 2019-12-24 14:06 | PT.INTREAT ---
Date of service: 12/24/19 Time of Service: 14:06 PT Notes Visit Reasons: AGITATION, CONFUSION, HUMERUS FX Inpatient Physical Therapy Treatment Note [facility] Date: 12/24/19 PRECAUTIONS: Fall SUBJECTIVE: Jackson is pleasant and agreeable to participating in PT. OBJECTIVE: PAIN: Patient c/o R shoulder pain with [id number]-rb-[id number] transfers BED MOBILITY/TRANSFERS Supine-sit: I with HOB flat Sit-supine: I with HOB flat Sit-stand: S Stand-sit: S GAIT Assistive Device: No AD Weight bearing: WBAT R UE Assist: SBA-S Distance: 200' + 60' + 260' NEURO RE-ED: Patient participated in a static balance retraining program. Activities include trunk rotation, cervical flexion/extension/rotation, marching in place and functional [id number] without UE support. Patient requires CGA for all activities for safety, but demonstrates no LOB. STAIRS: Up/down 15?4 and 10?6 using B rails and a step over pattern with supervision ASSESSMENT: Patient tolerated session well with c/o R shoulder pain with sbd-fm-[id number] transfers. Patient would benefit from continued balance retraining for improved stability with static and dynamic activities in a standing position. PLAN: Continue with PTs POC TREATMENT CODE/TIME: 30 minutes; [id number], [id number]
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
[2019-12-24 15:15] VITALS: BP 101/61; PULSE 62; RESP 19; TEMP 36.5; O2SAT 98
--- NOTE | 2019-12-24 20:01 | PCPN_ITS ---
Date of service: 12/24/19 Time of Service: 16:01 Assessment and Plan Assessment and plan (1) Agitation due to dementia: Status: Acute (2) Palliative care encounter: Status: Acute Assessment and plan: Herve was more calm today, and also accepting of his . The overall plan is for him to go to [facility] in hopes of evening out his agitation and then he would be able to return home. His is expecting this. His Walt, his son and myself spoke at length about the CO LST form. After much discussion they felt that he would want to be DNR/DNI, he would not want to be transported once he was home or an institution, he still would want antibiotics if they could provide comfort, he would not want tube feedings, he would want some IV fluids if it could help to return him to baseline. I have spent more than 50% of time in counseling with this patient. This document was created by [employer] software. Content was screened for misspellings, grammatical mistakes, etc. I apologize for any problems, but please contact me for further clarification if needed. Subjective Subjective Interval history since last seen: I met with Artie Walt and son today to discuss advanced care planning. Herve continues to have memory difficulties and he has been somewhat belligerent to his . This is been a longtime pattern of his. When I spoke to Herve yesterday it was clear that he did not have a grasp of understanding regarding CODE STATUS. Today Artie and son bring with them papers signed at a iron worker apprentice's office designating Walt, his as his D POA. We met outside the hospital so that the 3 of us could be together. Radha from care management was also there. We discussed D POA, and the CO LST form at length. I did go to see Herve after. He was kind and considerate but did not remember that he and I had had an hour long conversation yesterday Exam Narrative Exam Narrative: Herve was sitting in his chair eating his dinner, he did not remember me. His heart was regular. Objective Objective Clinical Data: Abnormal lab results 12/24/19 Range/Units 06:08 PT 25.3 H (9.3-11.0) sec INR 2.6 H D (0.9-1.1) Vital Signs Temperature 97.7 F 12/24/19 15:15 Temperature Source Tympanic 07/07/20 15:15 Pulse 62 12/24/19 15:15 Pulse Rhythm Irregular 12/24/19 17:01 Respiratory Rate 19 12/24/19 15:15 Respiratory Effort Non-Labored 12/24/19 17:01 Respiratory Depth Normal 12/24/19 17:01 Respiratory Pattern Normal 12/24/19 17:01 Blood Pressure 101/61 12/24/19 15:15 Pulse Oximetry 98 12/24/19 15:15 Oxygen Delivery Method Room Air 12/24/19 15:15 Oxygen Flow Rate 0 12/24/19 15:15 Pain Level 0 12/24/19 14:31 Intake & Output 12/23/19 12/24/19 12/24/19 23:59 11:59 23:59 Intake Total 480 / 480 Output Total 225 / 225 Balance -225 / -225 480 / 480 Weight 170 lb 15.989 oz Intake: Oral 480 / 480 Output: Urine 225 / 225 Other: Urine Color Yellow Yellow Yellow Urine Appearance Clear Clear Clear Urine Odor Normal None Stool Size Moderate Stool Characteristics Soft Voiding Methods Urinal Toilet Laboratory Results PT 25.3 sec (9.3-11.0) H 12/24/19 06:08 INR 2.6 (0.9-1.1) H D 12/24/19 06:08
[2019-12-24] MEDS: QUEtiapine 25 MG TAB PO (21:07)
--- NOTE | 2019-12-24 23:05 | NUR.NOTE ---
Nursing Note: At 2000 hrs., Pt started to become restless, suspicious, refused to get in his room. Refused to take pill and anything offered was declined. He stated I want to get out from here, you will kill me , Closely monitored by STATION DETECTIVE for safety. Unable to be redirected, verbally increased agitation noted. At this time , pt is sitting on the edge of his bed., required one on one sitter.
[2019-12-25 07:20] VITALS: BP 123/75; PULSE 107; RESP 18; TEMP 37; O2SAT 99
[2019-12-25 07:29] LABS: INR 2.4 (0.9-1.1)
[2019-12-25] MEDS: Acetaminophen 500 MG TAB 1000 MG PO ×2 (07:45→19:37)
[2019-12-25] MEDS: Metoprolol 50 MG TAB PO ×2 (07:46→19:37)
[2019-12-25] MEDS: dilTIAZem CD 120 MG CAPCR 240 MG PO (07:46)
[2019-12-25] MEDS: Lisinopril 10 MG TAB 30 MG PO (07:46)
--- NOTE | 2019-12-25 10:25 | PDOC.CMPRO ---
- If Service Date Differs Date of service: 12/25/19 Time of Service: 10:25 Care Management Progress Note S/O: Herve is alert he has been wandering frequently. He continues to receive PT and staff is ambulating. Per nursing he refused his Seroquel last evening he states he felt more tired last evening he is unsure if it was the medication or just activity. His spouse is present, CM provided her with the information and documents required by terminal operations supervisor medicaid. Application has been submitted. [facility] continues to review for possible admission CM faxed COLST, living will, and POA to [facility]. A: Herve is a 79 year old male admitted with agitation, confusion and safety concerns at home r/t possible dementia. P: Herve remains in swing bed, CM is coordinating a possable discharge to [facility], referral is currently being reviewed. He will need to transport via ambulance at time of transfer if accepted. CM to continue to assess for discharge needs and coordinate disposition.
--- NOTE | 2019-12-25 11:39 | PT.INTREAT ---
Date of service: 12/25/19 Time of Service: 11:39 PT Notes Visit Reasons: AGITATION, CONFUSION, HUMERUS FX Inpatient Physical Therapy Treatment Note [facility] Date: 12/25/19 PRECAUTIONS: Fall, NWB R UE SUBJECTIVE: Jackson is pleasant and agreeable to participating in PT. OBJECTIVE: PAIN: Patient c/o R shoulder pain with [id number] transfers BED MOBILITY/TRANSFERS Supine-sit: I with HOB flat Sit-supine: I with HOB flat Sit-stand: I Stand-sit: I GAIT Assistive Device: No AD Weight bearing: NWB R UE Assist: S Distance: 800' x2 Note: No LOB or sway THEREX: Patient completed NuStep biking x10 minutes with close supervision for safety due to cognitive deficits. NEURO RE-ED: Patient participated in a static and dynamic balance retraining program. Activities include marching in place, tandem walking, side stepping, shoulder flexion/abduction with feet close together, and functional [id number]-[id number] without UE support. Patient requires CGA-SBA for all activities for safety, but demonstrates no LOB. ASSESSMENT: Patient tolerated session well with c/o R shoulder discomfort with mvm-[id number] transfers. Patient would benefit from continued balance retraining for improved stability with static and dynamic activities in a standing position. PLAN: Continue with PTs POC TREATMENT CODE/TIME: 40 minutes; 32009 x2, 03532
--- NOTE | 2019-12-25 13:00 | PT.INNT ---
Date of service: 12/25/19 Time of Service: 13:00 PT Notes Visit Reasons: AGITATION, CONFUSION, HUMERUS FX 12/25/19 Patient is confused and agitated and unable to participate in PT x2 this afternoon. Will attempt to resume PT services tomorrow morning, if appropriate. Johanna Dutton, LEAD ANDROID DEVELOPER
[2019-12-25 16:35] VITALS: BP 109/66; PULSE 93; RESP 20; TEMP 36.5; O2SAT 100
[2019-12-25] MEDS: QUEtiapine 25 MG TAB PO (19:37)
[2019-12-26] MEDS: Haloperidol 5 MG/ML VIAL IM
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
[2019-12-26 08:00] VITALS: BP 120/73; PULSE 89; RESP 16; TEMP 37.6; O2SAT 98
[2019-12-26] MEDS: Lisinopril 10 MG TAB 30 MG PO (08:14)
[2019-12-26] MEDS: Acetaminophen 500 MG TAB 1000 MG PO (08:14)
[2019-12-26] MEDS: dilTIAZem CD 120 MG CAPCR 240 MG PO (08:15)
[2019-12-26] MEDS: Metoprolol 50 MG TAB PO (08:15)
--- NOTE | 2019-12-26 08:33 | W.PM.DS.N ---
Date of service: 12/26/19 Time of Service: 08:34 DS: Diagnosis Discharge Diagnosis (1) Humeral fracture: Status: Acute (2) Agitation due to dementia: Status: Acute (3) Palliative care encounter: Status: Acute Discharge Plan Disposition Patient Disposition: OTHER Condition: Fair Discharge Details Reason For Visit: AGITATION, CONFUSION, HUMERUS FX Admit Date/Time: 12/23/19 13:18 Admit Provider: Vivian Ruelas Attending Provider: Vivian Ruelas Primary Care Provider: Aditya Perera Hospital Course Hospital Course: This is a 79 y.o male with newly diagnosed dementia, recent humeral fracture who presented to emergency room with family after several days of agitation intermittently on 12/22/2019. He sustained a fall in November fracturing his humerus since this time he has had progressively worsening owning with good and bad days. He was seen by Dr. Onofre on 12/16/2019 and given ativan, he was then again seen on 12/18/[address] Perera and given seroquel. He was having trouble sleeping due to agitation and arm pain, family felt he was unsafe for home so he was brought to the emergency department. CT head without acute pathology, labs unremarkable except INR 3.1 takes coumadin daily for Afib. He was confused and agitated, on initial presentation thinking he is on the third level of the bank. Oriented to self and time only. He was admitted to swing bed level 1 as he does require PT for his broken humerus and medication adjustment. He has remained confused and agitated and has been pacing and wandering. He has refused some PT sessions and some medications. Case management has been following and referrals have been placed to [facility] for acute inpatient jimean-psychiatric placed for stabilization. He was followed by Dr Shae Gunderson from palliative care, who completed a COLST form with and son. A bed has been secured at [facility] and arrangements has been made for transfer. discharge plan discussed with Dr Ramirez who is in agreement. Home Meds and New Rx's Prescriptions: New polyethylene glycol 3350 17 gram Powder In Packet 17 g PO DAILY PRN PRN (Reason: Constipation) Qty: 0 RF: 0 acetaminophen [Mapap Extra Strength] 500 mg Tablet 1,000 mg PO TID Qty: 0 RF: 0 Continued diltiazem HCl [Cardizem CD] 240 mg capsule,extended release 24hr 240 mg PO DAILY Qty: 90 RF: 4 lisinopril 30 mg tablet 30 mg PO DAILY Qty: 90 RF: 4 metoprolol tartrate 50 mg tablet 50 mg PO BID Qty: 180 RF: 4 Changed quetiapine 25 mg tablet 25 mg PO HS MAY REPEAT X1 Qty: 30 RF: 4 warfarin [Coumadin] 5 mg tablet 2.5 mg PO QPM Qty: 200 RF: 8 Discontinued metoprolol tartrate 25 mg tablet 25 mg PO DAILY Qty: 90 RF: 4 lorazepam 0.5 mg tablet 0.5 mg PO BID PRN (Reason: anxiety) Qty: 7 RF: 0 Discharge Instructions Instructions: Arm Fracture in Adults (DC) Stand Alone Forms: Nursing Discharge Form Referrals: Aditya Perera DO [Primary Care Provider] - (on discharge from [facility]) Activity:: Activity as Tolerated Equipment/Supplies:: No Equipment Needed Diet:: As Tolerated Discharge Orders Discharge Orders: Discharge Order (Routine); Ordered 12/26/19 Ordered By: Angely Rodriguez DS: Summary Status at Discharge Functional status at discharge: independent ambulation Overall status at discharge: patient is not back to baseline Mental Status: other (demented) Speech and Movement: agitated (at times) Mood: other (demented) Affect: irritable affect Exam Const General: cooperative, healthy appearing and comfortable Orientation: alert, awake, oriented to person and confused HENMT Head: normal to inspection, normocephalic and atraumatic Mouth: oral mucosae normal Resp Effort & Inspection: normal respiratory effort Cardio Rate: regular rate Rhythm: abnormal rhythm irregularly irregular GI Inspection: normal to inspection Palpation: soft Auscultation: normal bowel sounds Skin General skin exam: ecchymosis (right upper extremity) and other (in sling) Neuro General: patient alert, patient awake and oriented Patient Orientation: Person and Confused Extrem Right upper extremity: edema (trace) and shoulder/upper arm (sling, ) Details: abnormal ROM and ecchymosis; ROM limited Psych Appearance: grossly normal Mental Status: other (demented) Speech and Movement: agitated (at times) Mood: other (demented) Affect: irritable affect Thought Process: other (paranoid) Insight: poor Judgment: poor DS: Data Vitals/I&O Vitals and I&O: Vital Signs Temperature 36.5 C 12/25/19 16:35 Temperature Source Temporal Artery Scan 12/25/19 16:35 Pulse 93 H 12/25/19 16:35 Pulse Rhythm Regular 12/26/19 03:00 Respiratory Rate 12/25/19 16:35 Respiratory Effort 12/26/19 03:00 Respiratory Depth Normal 12/26/19 03:00 Respiratory Pattern Normal 12/26/19 03:00 Blood Pressure 109/66 12/25/19 16:35 Pulse Oximetry 100 12/25/19 16:35 Oxygen Delivery Method Room Air 12/25/19 16:35 Oxygen Flow Rate 0 12/25/19 16:35 Pain Level 3 12/26/19 08:14 Comment 12/24/19 23:35 Intake & Output 12/25/19 12/25/19 12/26/19 11:59 23:59 11:59 Intake Total 240 / 240 Output Total 225 / 225 Balance 240 / 15 -225 / 15 Intake: Oral 240 / 240 Output: Urine 225 / 225 Other: Urine Color Yellow Urine Appearance Clear Clear Clear Comment void x 1 in toilet Voiding Methods Toilet Toilet Data Completed and Pending Labs on day of discharge: Labs from last 24 hours 12/26/19 05:35 PT Pending INR Pending [facility] Medical History Impacted cerumen of both ears (Acute) Memory change (Acute) Surgical History Repair of inguinal hernia 10/23/15; LEFT; [facility] Tonsillectomy and adenoidectomy Vasectomy Family History Mother Renal failure Stroke Father Alzheimer disease Myocardial infarction Son No problems noted. Daughter No problems noted. Social History Smoking/Tobacco Use Status: Former Tobacco Use Alcohol Intake: current Alcohol Intake frequency: holidays/special occasions only Drug use: Never Substance use type: does not use Pets and animals: No Special rob needs: No Do you feel safe at home: Yes Do you feel safe in your relationship?: Yes
--- NOTE | 2019-12-26 09:31 | INDS_ITS ---
Date of service: 12/26/19 Time of Service: 09:31 PT Notes Visit Reasons: AGITATION, CONFUSION, HUMERUS FX Date: 12/26/19 Treatment Dates: 12/24/19-12/25/19 Referring Doctor: Vivian Ruelas NP PT Orders: PT CONSULT: limited ability to ambulate THIS DOCUMENT SERVES A SUMMARY OF CARE. NO PT SERVICES WERE PROVIDED ON THIS DATE. Precautions: fall, standard Patient Profile/Admitting Diagnosis: Patient admitted 12/22/19 due to agitation in the presence of dementia. He was seen for 3 PT sessions over the course of 2 days, and was able to transition to [facility] today. PMHX: recent proximal humerus fx, ~ 2 weeks ago. Patient has been evaluated by Dr. Johnson and is being managed in a sling. He's been instructed pendulums, per note from Dr. Johnson. Subjective: None obtained Objective: ROM: Right Upper Extremity: AROM/PROM not assessed at the shoulder due to recent fracture. With modified pendulum in seated position, he tolerates approximately 30 degrees flexion. Elbow motion allows -10 extension to 100 degrees flexion. Forearm pronation and supination are full, with moderate pain in end range supination. Left Upper Extremity: WFL Right Lower Extremity: WFL Left Lower Extremity: WFL Strength: Right Upper Extremity: Not assessed Left Upper Extremity: Shoulder flexion 3/5 or greater. Biceps 5/5. Triceps 5/5. Right Lower Extremity: Patient is functionally able to demonstrate heel slide and SLR. Dorsiflexion is 5/5. Left Lower Extremity: Patient is functionally able to demonstrate heel slide and SLR. Dorsiflexion is 5/5. Sensation: Intact distally Bed Mobility/Transfers: Supine?sit: independent with HOB flat sit-supine: independent with HOB flat Sit?stand: independent Stand?sit: independent Bed?chair: independent Gait: Patient demonstrated ability to safely ambulate 800' without assistive device, and with supervision only. Stairs: Patient manages therapeutic stairs 4, ascending and descending x 15 and 6 stairs, ascending and descending x 10 with LUE support to rail and supervision only. Balance: Static Sitting: Normal Dynamic Sitting: Good Static Standing: Good Dynamic Standing: Good Coordination: Moderately impaired with alternating toe tapping and [id number] Assessment: Patient is a 79 year old male referred to physical therapy services with the diagnosis of declining mental status and agitation in the presence of subacute proximal right humerus fracture. Patient presented with mobility limitations based on diagnosis. He made significant improvements in mobility during his stay,and is appropriate for discharge from PT services. He will likely require additional services in the future to address his right shoulder fracture, which can be addressed at his follow up visit with Dr. Johnson. Goals: Goals X1 week 1. Supine-Sit: Supervision (met) 2. Sit-Supine: Supervision(met) 3. Sit-Stand: Supervision(met) 4. Stand-Sit: Supervision(met) 5. Bed-Chair: Supervision(met) 6. Chair-Bed: Supervision(met) 7. Gait : Supervision x 200 (met) 8. Supervised stair management (met) Plan of Care/Treatment Plan: Discharge from PT services DISCHARGE RECOMMENDATIONS: No additional PT requirements at this time TREATMENT CODE/TIME: none Eneida Gonzales, PT, DPT [facility]
--- NOTE | 2019-12-26 11:00 | PDOC.CMDIS ---
- If Service Date Differs Date of service: 12/26/19 Time of Service: 11:00 LACE Index Scoring Tool - Questions: Length of Stay (in days): 4 - 6 Acuity (Admit via E.D.?): Yes Comorbidities: Dementia E.D. Visits: 1 - Answers: Total Score: 11 Risk of Readmission: High Risk Care Management Discharge Reason for Hospitalization: Herve was admitted for aggitation and confusion and concerns for safety at home. [facility] to [facility] before transitioning home. long-term medicaid application faxed to [facility], Guardinship paperwork completed and brought to [facility] court. Herve will be transported via [place] coordinated by CM. Spouse was able see patient before he was discharged and brought him his clothing. Patient/Family Education Needs: Education, limitations and follow up plan of care including transition to [facility]. Services Needed at Discharge: Psychiatric Facility, Transportation - MH Services (Omit if N/A) Current MH Services: Other
== END 2019-12-26 09:35 | disposition other institution (70) | DRG 884 ==
PROVIDERS: Admitting Provider Nurse Practitioner Family; PCP Emergency Medicine; Visit Provider Nurse Practitioner Family
DX: F03.90 Unspecified dementia, unspecified severity, without behavioral disturbance, psychotic disturbance, mood disturbance, and anxiety (principal); R45.1 Restlessness and agitation; S42.301D Unspecified fracture of shaft of humerus, right arm, subsequent encounter for fracture with routine healing; Z87.891 Personal history of nicotine dependence; Z51.5 Encounter for palliative care; Z79.01 Long term (current) use of anticoagulants
CPT/HCPCS: 36415; 97112; 97162; 97530; 99233; 99254; 99306; 99316; 85610; J1630

== ENCOUNTER 2020-01-28 09:02 | Outpatient (CLI) | payer MEDICARE, SELFPAY ==
--- NOTE | 2020-01-28 08:45 | DI.RAD_ITS ---
EXAM: XR SHOULDER RT COMPLETE 2+V CLINICAL HISTORY: right humeral fracture. TECHNIQUE: 2D digital imaging was performed. COMPARISON: CR XR SHOULDER RT COMPLETE 2+V from 12/17/2019 FINDINGS: BONES: There is again seen a comminuted fracture of the metadiaphyseal region of the proximal right h umerus. Since the prior examination the alignment has improved. Minimal angulation is present. The re is medial displacement of the distal fracture 1/2 shaft's width. Callus formation has developed a round the fracture. No new fracture or dislocation is present. No bony destructive lesion is seen. JOINTS: No dislocation present. SOFT TISSUE: Normal. IMPRESSION: Healing proximal right humeral fracture. DATA REPOSITORY: RADIATION DOSE DELIVERED:
== END 2020-01-28 09:22 ==
PROVIDERS: PCP Emergency Medicine; Referring Provider Emergency Medicine; Visit Provider Physician Assistant
DX: S42.201D Unspecified fracture of upper end of right humerus, subsequent encounter for fracture with routine healing (principal); S42.211D Unspecified displaced fracture of surgical neck of right humerus, subsequent encounter for fracture with routine healing; X58.XXXD Exposure to other specified factors, subsequent encounter
CPT/HCPCS: 99213; 73030

== ENCOUNTER 2020-03-03 10:50 | Outpatient (CLI) | payer MEDICARE, SELFPAY ==
--- NOTE | 2020-03-03 10:30 | DI.RAD_ITS ---
EXAM: XR SHOULDER RT COMPLETE 2+V CLINICAL HISTORY: F/U FRACTURE TECHNIQUE: COMPARISON: CR XR SHOULDER RT COMPLETE 2+V from 01/28/2020 FINDINGS: Two views were obtained. Previously described comminuted fracture of the proximal diaphyseal metaphy seal junction of humerus is again noted, no gross interval change in alignment comparison with examin ation of January 27. There is moderate callus formation at the fracture site. IMPRESSION: RADIATION DOSE DELIVERED: Total DLP
== END 2020-03-03 11:10 ==
PROVIDERS: PCP Emergency Medicine; Referring Provider Emergency Medicine; Visit Provider Student in an Organized Health Care Education/Training Program
DX: S42.291A Other displaced fracture of upper end of right humerus, initial encounter for closed fracture (principal); S42.301A Unspecified fracture of shaft of humerus, right arm, initial encounter for closed fracture; X58.XXXA Exposure to other specified factors, initial encounter
CPT/HCPCS: 99213; 73030

== ENCOUNTER 2020-04-03 13:26 | Outpatient (REF) | payer MEDICARE, SELFPAY ==
[2020-04-03 14:05] LABS: INR 1.6 (0.9-1.1); Prothrombin Time 15.6 sec (9.3-11.0)
== END 2020-04-03 13:46 ==
LOC: LBN 13:26
PROVIDERS: Family Medicine; PCP Emergency Medicine; Visit Provider Emergency Medicine
DX: I48.91 Unspecified atrial fibrillation (principal); Z79.01 Long term (current) use of anticoagulants
CPT/HCPCS: 85610

== ENCOUNTER 2020-08-11 02:06 | Outpatient (CLI) | payer MEDICARE, SELFPAY ==
[2020-08-11 13:00] LABS: INR 2.1 (0.9-1.1); Prothrombin Time 20.7 sec (9.3-11.0)
== END 2020-08-11 02:07 | disposition home or self-care (01) ==
LOC: LOS 02:07
PROVIDERS: PCP Emergency Medicine; Visit Provider Family Medicine
DX: I48.20 Chronic atrial fibrillation, unspecified (principal); Z79.01 Long term (current) use of anticoagulants
CPT/HCPCS: 36415; 81240; 85610

== ENCOUNTER 2020-09-08 03:30 | Outpatient (CLI) | payer MEDICARE, SELFPAY ==
[2020-09-08 12:37] LABS: INR 2.2 (0.9-1.1); Prothrombin Time 21.3 sec (9.3-11.0)
== END 2020-09-08 03:31 | disposition home or self-care (01) ==
LOC: LOS 03:30
PROVIDERS: Emergency Medicine; PCP Family Medicine; Visit Provider Family Medicine
DX: I48.20 Chronic atrial fibrillation, unspecified (principal); Z79.01 Long term (current) use of anticoagulants
CPT/HCPCS: 36415; 85610

== ENCOUNTER 2020-10-06 02:29 | Outpatient (CLI) | payer MEDICARE, SELFPAY ==
[2020-10-06 12:56] LABS: INR 2.9 (0.9-1.1)
== END 2020-10-06 02:30 | disposition home or self-care (01) ==
LOC: LOS 02:29
PROVIDERS: Emergency Medicine; PCP Family Medicine; Visit Provider Family Medicine
DX: I48.91 Unspecified atrial fibrillation (principal); Z79.01 Long term (current) use of anticoagulants
CPT/HCPCS: 36415; 85610

== ENCOUNTER 2020-11-03 03:13 | Outpatient (CLI) | payer MEDICARE, SELFPAY ==
[2020-11-03 12:29] LABS: HCT 50.9 % (40.0-50.0); MCH 28.2 pg (27.0-33.0); MCHC 31.4 % (32.0-36.0); MCV 89.6 fL (80-95); MPV 11.1 fL (8.0-11.0); Platelet Count 196 10^3/uL (130-400); RBC 5.68 10^6/uL (4.36-5.78); RDW 13.7 % (11.8-14.1); RDW-SD 45.4 fL; WBC 6.33 10^3/uL (4.4-10.8)
[2020-11-03 12:36] LABS: ALT 17 U/L (16-63); AST 19 U/L (15-37); Albumin 3.6 g/dL (3.4-5.0); Alkaline Phosphatase 87 U/L (46-116); Anion Gap 9.9 mmol/L (3-11); BUN 16 mg/dL (7-18); Bilirubin, Total 0.9 mg/dL (0.2-1.0); CO2 28.1 mmol/L (21.0-32.0); CREATININE 1.2 mg/dL (0.70-1.30); Calcium 9.1 mg/dL (8.5-10.1); Chloride 105 mmol/L (98-107); Estimated GFR 58.26 (mL/min/1.73m2); Glucose 78 mg/dL (74-106); Potassium 4.5 mmol/L (3.5-5.1); Sodium 143 mmol/L (136-145); Total Protein 7.3 g/dL (6.4-8.2)
[2020-11-03 12:45] LABS: Prothrombin Time 29.6 sec (9.3-11.0)
== END 2020-11-03 03:14 | disposition home or self-care (01) ==
PROVIDERS: PCP Family Medicine; Visit Provider Family Medicine
DX: I10 Essential (primary) hypertension (principal); Z79.01 Long term (current) use of anticoagulants; R41.3 Other amnesia; I48.91 Unspecified atrial fibrillation
CPT/HCPCS: 36415; 80053; 85027; 85610

== ENCOUNTER 2020-12-01 01:51 | Outpatient (CLI) | payer MEDICARE, SELFPAY ==
[2020-12-01 12:54] LABS: INR 2.6 (0.9-1.1); Prothrombin Time 25.5 sec (9.3-11.0)
== END 2020-12-01 01:52 | disposition home or self-care (01) ==
LOC: LOS 01:51
PROVIDERS: PCP Family Medicine; Visit Provider Family Medicine
DX: I48.91 Unspecified atrial fibrillation (principal); Z79.01 Long term (current) use of anticoagulants
CPT/HCPCS: 36415; 85610

== ENCOUNTER 2020-12-29 03:12 | Outpatient (CLI) | payer MEDICARE, SELFPAY ==
[2020-12-29 12:41] LABS: INR 2.2 (0.9-1.1); Prothrombin Time 21.6 sec (9.3-11.0)
== END 2020-12-29 03:13 | disposition home or self-care (01) ==
PROVIDERS: Emergency Medicine; PCP Family Medicine; Visit Provider Family Medicine
DX: I48.91 Unspecified atrial fibrillation (principal); Z79.01 Long term (current) use of anticoagulants
CPT/HCPCS: 36415; 85610

== ENCOUNTER 2021-01-26 03:07 | Outpatient (CLI) | payer MEDICARE, SELFPAY ==
[2021-01-26 12:35] LABS: INR 1.9 (0.9-1.1); Prothrombin Time 19.1 sec (9.3-11.0)
== END 2021-01-26 03:08 | disposition home or self-care (01) ==
LOC: LOS 03:08
PROVIDERS: PCP Family Medicine; Visit Provider Family Medicine
DX: I48.91 Unspecified atrial fibrillation (principal); Z79.01 Long term (current) use of anticoagulants
CPT/HCPCS: 36415; 85610

== ENCOUNTER 2021-02-23 04:28 | Outpatient (CLI) | payer MEDICARE, SELFPAY ==
[2021-02-23 12:27] LABS: INR 2.5 (0.9-1.1); Prothrombin Time 24.6 sec (9.3-11.0)
== END 2021-02-23 04:29 | disposition home or self-care (01) ==
LOC: LOS 04:29
PROVIDERS: Emergency Medicine; PCP Family Medicine; Visit Provider Family Medicine
DX: I48.91 Unspecified atrial fibrillation (principal); Z79.01 Long term (current) use of anticoagulants
CPT/HCPCS: 36415; 85610

== ENCOUNTER 2021-03-23 03:33 | Outpatient (CLI) | payer MEDICARE, SELFPAY ==
[2021-03-23 12:33] LABS: INR 2.3 (0.9-1.1); Prothrombin Time 22.4 sec (9.3-11.0)
== END 2021-03-23 03:34 | disposition home or self-care (01) ==
LOC: LOS 03:33
PROVIDERS: PCP Family Medicine; Visit Provider Family Medicine
DX: I48.91 Unspecified atrial fibrillation (principal); Z79.01 Long term (current) use of anticoagulants
CPT/HCPCS: 36415; 85610

== ENCOUNTER 2021-04-20 02:12 | Outpatient (CLI) | payer MEDICARE, SELFPAY ==
[2021-04-20 12:28] LABS: Prothrombin Time 23.1 sec (9.3-11.0)
[2021-04-20 12:36] LABS: INR 2.3 (0.9-1.1)
== END 2021-04-20 02:13 | disposition home or self-care (01) ==
LOC: LOS 02:12
PROVIDERS: PCP Family Medicine; Visit Provider Family Medicine
DX: I48.91 Unspecified atrial fibrillation (principal)
CPT/HCPCS: 36415; 85610

== ENCOUNTER 2021-05-18 03:25 | Outpatient (CLI) | payer MEDICARE, SELFPAY ==
[2021-05-18 13:03] LABS: INR 2.5 (0.9-1.1); Prothrombin Time 24.4 sec (9.3-11.0)
== END 2021-05-18 03:26 | disposition home or self-care (01) ==
LOC: LOS 03:25
PROVIDERS: PCP Family Medicine; Visit Provider Family Medicine
DX: I48.91 Unspecified atrial fibrillation (principal)
CPT/HCPCS: 36415; 85610

== ENCOUNTER 2021-07-08 02:06 | Outpatient (CLI) | payer MEDICARE, SELFPAY ==
[2021-07-08 09:53] LABS: Prothrombin Time 29.4 sec (9.3-11.0)
== END 2021-07-08 02:07 | disposition home or self-care (01) ==
LOC: LBO 02:06
PROVIDERS: Internal Medicine Cardiovascular Disease; PCP Family Medicine; Visit Provider Family Medicine
DX: I48.91 Unspecified atrial fibrillation (principal)
CPT/HCPCS: 36415; 85610

== ENCOUNTER 2021-08-05 02:54 | Outpatient (CLI) | payer MEDICARE, SELFPAY | END 2021-08-05 02:55 | disposition home or self-care (01) | LOC: LBO 02:54 | PROVIDERS: PCP Family Medicine; Visit Provider Family Medicine ==

== ENCOUNTER 2021-08-10 03:49 | Outpatient (CLI) | payer MEDICARE, SELFPAY ==
[2021-08-10 11:25] LABS: INR 2.6 (0.9-1.1); Prothrombin Time 25.6 sec (9.3-11.0)
== END 2021-08-10 03:50 | disposition home or self-care (01) ==
LOC: LBO 03:49
PROVIDERS: PCP Family Medicine; Visit Provider Family Medicine
DX: I48.91 Unspecified atrial fibrillation (principal); Z79.01 Long term (current) use of anticoagulants
CPT/HCPCS: 36415; 85610

== ENCOUNTER 2021-09-16 04:08 | Outpatient (CLI) | payer MEDICARE, SELFPAY ==
[2021-09-16 13:41] LABS: INR 1.9 (0.9-1.1); Prothrombin Time 18.6 sec (9.3-11.0)
== END 2021-09-16 04:09 | disposition home or self-care (01) ==
LOC: LBO 04:08
PROVIDERS: PCP Family Medicine; Visit Provider Family Medicine
DX: I48.91 Unspecified atrial fibrillation (principal)
CPT/HCPCS: 36415; 85610

== ENCOUNTER 2021-10-11 04:58 | Outpatient (CLI) | payer MEDICARE, SELFPAY ==
[2021-10-11 12:32] LABS: INR 2.2 (0.9-1.1); Prothrombin Time 21.5 sec (9.3-11.0)
== END 2021-10-11 04:59 | disposition home or self-care (01) ==
PROVIDERS: PCP Family Medicine; Visit Provider Family Medicine
DX: I48.91 Unspecified atrial fibrillation (principal); Z79.01 Long term (current) use of anticoagulants
CPT/HCPCS: 36415; 85610

== ENCOUNTER 2021-11-08 04:02 | Outpatient (CLI) | payer MEDICARE, SELFPAY ==
[2021-11-08 13:24] LABS: ALT 15 U/L (16-63); AST 18 U/L (15-37); Albumin 3.5 g/dL (3.4-5.0); Alkaline Phosphatase 84 U/L (46-116); Anion Gap 7.4 mmol/L (3-11); BUN 19 mg/dL (7-18); Bilirubin, Total 0.8 mg/dL (0.2-1.0); CO2 27.6 mmol/L (21.0-32.0); CREATININE 1.2 mg/dL (0.70-1.30); Calcium 9.2 mg/dL (8.5-10.1); Chloride 107 mmol/L (98-107); Estimated GFR 58.11 (mL/min/1.73m2); Glucose 93 mg/dL (74-106); Potassium 5.1 mmol/L (3.5-5.1); Sodium 142 mmol/L (136-145); Total Protein 7.3 g/dL (6.4-8.2)
== END 2021-11-08 04:03 | disposition home or self-care (01) ==
LOC: LOS 04:02
PROVIDERS: PCP Family Medicine; Visit Provider Family Medicine
DX: I10 Essential (primary) hypertension (principal); I48.91 Unspecified atrial fibrillation
CPT/HCPCS: 36415; 80053

== ENCOUNTER 2021-12-09 03:26 | Outpatient (CLI) | payer MEDICARE, SELFPAY ==
[2021-12-09 12:53] LABS: Prothrombin Time 19.5 sec (9.3-11.0)
== END 2021-12-09 03:27 | disposition home or self-care (01) ==
LOC: LOS 03:26
PROVIDERS: Emergency Medicine; PCP Family Medicine; Visit Provider Family Medicine
DX: I48.91 Unspecified atrial fibrillation (principal); Z79.01 Long term (current) use of anticoagulants
CPT/HCPCS: 36415; 85610

== ENCOUNTER 2022-01-06 01:08 | Outpatient (CLI) | payer MEDICARE, SELFPAY ==
[2022-01-06 12:57] LABS: INR 2.8 (0.9-1.1); Prothrombin Time 26.7 sec (9.3-11.0)
== END 2022-01-06 01:09 | disposition home or self-care (01) ==
LOC: LOS 01:08
PROVIDERS: PCP Family Medicine; Visit Provider Family Medicine
DX: I48.91 Unspecified atrial fibrillation (principal); Z79.01 Long term (current) use of anticoagulants
CPT/HCPCS: 36415; 85610

== ENCOUNTER 2022-02-03 03:45 | Outpatient (CLI) | payer MEDICARE, SELFPAY ==
[2022-02-03 12:52] LABS: Prothrombin Time 23.3 sec (9.3-11.0)
[2022-02-03 13:02] LABS: INR 2.4 (0.9-1.1)
== END 2022-02-03 03:46 | disposition home or self-care (01) ==
LOC: LOS 03:45
PROVIDERS: PCP Family Medicine; Visit Provider Family Medicine
DX: I48.91 Unspecified atrial fibrillation (principal)
CPT/HCPCS: 36415; 85610

== ENCOUNTER 2022-03-02 01:44 | Outpatient (CLI) | payer MEDICARE, SELFPAY ==
[2022-03-02 13:05] LABS: INR 2.9 (0.9-1.1); Prothrombin Time 27.3 sec (9.3-11.0)
== END 2022-03-02 01:45 | disposition home or self-care (01) ==
LOC: LOS 01:44
PROVIDERS: PCP Family Medicine; Visit Provider Family Medicine
DX: Z79.01 Long term (current) use of anticoagulants (principal); I48.91 Unspecified atrial fibrillation
CPT/HCPCS: 36415; 85610

== ENCOUNTER 2022-03-31 02:44 | Outpatient (CLI) | payer MEDICARE, SELFPAY ==
[2022-03-31 12:40] LABS: INR 2.6 (0.9-1.1); Prothrombin Time 24.7 sec (9.3-11.0)
== END 2022-03-31 02:45 | disposition home or self-care (01) ==
LOC: LOS 02:44
PROVIDERS: PCP Family Medicine; Visit Provider Family Medicine
DX: I48.91 Unspecified atrial fibrillation (principal)
CPT/HCPCS: 36415; 85610

== ENCOUNTER 2022-04-26 03:47 | Outpatient (CLI) | payer MEDICARE, SELFPAY ==
[2022-04-26 11:43] LABS: INR 2.6 (0.9-1.1)
== END 2022-04-26 03:48 | disposition home or self-care (01) ==
LOC: LOS 03:47
PROVIDERS: PCP Family Medicine; Visit Provider Family Medicine
DX: I48.91 Unspecified atrial fibrillation (principal)
CPT/HCPCS: 36415; 85610

== ENCOUNTER 2022-05-23 04:12 | Outpatient (CLI) | payer MEDICARE, SELFPAY ==
[2022-05-23 12:45] LABS: INR 2.9 (0.9-1.1); Prothrombin Time 27.5 sec (9.3-11.0)
== END 2022-05-23 04:13 | disposition home or self-care (01) ==
LOC: LOS 04:12
PROVIDERS: PCP Family Medicine; Visit Provider Family Medicine
DX: I48.91 Unspecified atrial fibrillation (principal)
CPT/HCPCS: 36415; 85610

== ENCOUNTER 2022-06-24 02:25 | Outpatient (CLI) | payer MEDICARE, SELFPAY ==
[2022-06-24 14:23] LABS: INR 2.4 (0.9-1.1); Prothrombin Time 22.5 sec (9.3-11.0)
== END 2022-06-24 02:26 | disposition home or self-care (01) ==
LOC: LOS 02:25
PROVIDERS: PCP Family Medicine; Visit Provider Family Medicine
DX: I48.91 Unspecified atrial fibrillation (principal); Z79.01 Long term (current) use of anticoagulants
CPT/HCPCS: 36415; 85610

== ENCOUNTER 2022-07-25 03:06 | Outpatient (CLI) | payer MEDICARE, SELFPAY ==
[2022-07-25 16:25] LABS: Prothrombin Time 32.6 sec (9.3-11.0)
[2022-07-25 17:53] LABS: INR 3.2 (0.9-1.1)
== END 2022-07-25 03:07 | disposition home or self-care (01) ==
LOC: LOS 03:06
PROVIDERS: PCP Family Medicine; Visit Provider Family Medicine
DX: I48.91 Unspecified atrial fibrillation (principal); Z79.01 Long term (current) use of anticoagulants
CPT/HCPCS: 36415; 85610

== ENCOUNTER 2022-08-03 01:30 | Outpatient (CLI) | payer MEDICARE, SELFPAY ==
[2022-08-03 12:44] LABS: ALT 12 U/L (16-63); AST 17 U/L (15-37); Albumin 3.4 g/dL (3.4-5.0); Alkaline Phosphatase 90 U/L (46-116); Anion Gap 5.7 mmol/L (3-11); BUN 18 mg/dL (7-18); Bilirubin, Total 0.9 mg/dL (0.2-1.0); CO2 30.3 mmol/L (21.0-32.0); CREATININE 1.2 mg/dL (0.70-1.30); Calcium 9.3 mg/dL (8.5-10.1); Chloride 104 mmol/L (98-107); Estimated GFR 60.75 (mL/min/1.73m2); Glucose 89 mg/dL (74-106); Potassium 4.3 mmol/L (3.5-5.1); Sodium 140 mmol/L (136-145); Total Protein 7.4 g/dL (6.4-8.2)
== END 2022-08-03 01:31 | disposition home or self-care (01) ==
LOC: LOS 01:30
PROVIDERS: PCP Family Medicine; Visit Provider Family Medicine
DX: I10 Essential (primary) hypertension (principal)
CPT/HCPCS: 36415; 80053

== ENCOUNTER 2022-08-24 03:00 | Outpatient (CLI) | payer MEDICARE, SELFPAY ==
[2022-08-24 12:38] LABS: INR 2.4 (0.9-1.1); Prothrombin Time 24.4 sec (9.3-11.0)
== END 2022-08-24 03:01 | disposition home or self-care (01) ==
LOC: LOS 03:00
PROVIDERS: PCP Family Medicine; Visit Provider Family Medicine
DX: I48.91 Unspecified atrial fibrillation (principal); Z79.01 Long term (current) use of anticoagulants
CPT/HCPCS: 36415; 85610

== ENCOUNTER 2022-09-20 03:17 | Outpatient (CLI) | payer MEDICARE, SELFPAY ==
[2022-09-20 12:34] LABS: INR 3.6 (0.9-1.1); Prothrombin Time 36.5 sec (9.3-11.0)
== END 2022-09-20 03:18 | disposition home or self-care (01) ==
LOC: LOS 03:17
PROVIDERS: PCP Family Medicine; Visit Provider Family Medicine
DX: I48.91 Unspecified atrial fibrillation (principal); Z79.01 Long term (current) use of anticoagulants
CPT/HCPCS: 36415; 85610

== ENCOUNTER 2022-09-26 01:20 | Outpatient (CLI) | payer MEDICARE, SELFPAY ==
[2022-09-26 12:27] LABS: INR 2.2 (0.9-1.1); Prothrombin Time 21.8 sec (9.3-11.0)
== END 2022-09-26 01:21 | disposition home or self-care (01) ==
LOC: LOS 01:20
PROVIDERS: PCP Family Medicine; Visit Provider Family Medicine
DX: I48.91 Unspecified atrial fibrillation (principal); Z79.01 Long term (current) use of anticoagulants
CPT/HCPCS: 36415; 85610

== ENCOUNTER 2022-10-10 01:26 | Outpatient (CLI) | payer MEDICARE, SELFPAY ==
[2022-10-10 12:46] LABS: INR 1.3 (0.9-1.1); Prothrombin Time 13.6 sec (9.3-11.0)
== END 2022-10-10 01:27 | disposition home or self-care (01) ==
LOC: LOS 01:26
PROVIDERS: PCP Family Medicine; Visit Provider Family Medicine
DX: I48.91 Unspecified atrial fibrillation (principal); Z79.01 Long term (current) use of anticoagulants
CPT/HCPCS: 36415; 85610

== ENCOUNTER 2022-10-18 04:49 | Outpatient (CLI) | payer MEDICARE, SELFPAY ==
[2022-10-18 09:27] LABS: INR 2.1 (0.9-1.1)
== END 2022-10-18 04:50 | disposition home or self-care (01) ==
LOC: LBO 04:49
PROVIDERS: PCP Family Medicine; Visit Provider Family Medicine
DX: I48.91 Unspecified atrial fibrillation (principal); Z79.01 Long term (current) use of anticoagulants
CPT/HCPCS: 36415; 85610

== ENCOUNTER 2022-11-15 04:20 | Outpatient (CLI) | payer MEDICARE, SELFPAY ==
[2022-11-15 12:39] LABS: INR 2.7 (0.9-1.1); Prothrombin Time 27.6 sec (9.3-11.0)
== END 2022-11-15 04:21 | disposition home or self-care (01) ==
LOC: LOS 04:20
PROVIDERS: PCP Family Medicine; Visit Provider Family Medicine
DX: I48.91 Unspecified atrial fibrillation (principal); Z79.01 Long term (current) use of anticoagulants
CPT/HCPCS: 36415; 85610

== ENCOUNTER 2022-11-23 10:48 | Observation (INO) | payer MEDICARE, SELFPAY ==
--- NOTE | 2022-11-23 10:45 | DI.CT_ITS ---
Exam(s) CT HEAD WO EXAM: CT HEAD WO CLINICAL HISTORY: ams. TECHNIQUE: Imaging Protocol: Axial computed tomography images with coronal and sagittal reformatted images were created and reviewed COMPARISON: CT CT HEAD WO from 12/22/2019 FINDINGS: Ventricles and Extra axial spaces: Normal in size and morphology for the patient's age. Hemorrhage: None. Cerebral parenchyma: There is no evidence of an acute territorial infarct. There are areas of decrea sed attenuation in the white matter most consistent with small vessel ischemic disease. Midline shift: None. Brainstem/Cerebellum: Normal. Calvarium: Normal. Visualized Paranasal sinuses/Mastoids: Clear. Soft Tissues: Unremarkable. IMPRESSION: 1. No acute intracranial process. 2. Findings were discussed with the emergency department at 12:33 p.m. on 11/23/2022. RADIATION DOSE DELIVERED: 813.18mGy.cm Total DLP DATA REPOSITORY: All CT scans at this facility are submitted to the National Radiology Data Registry (NRDR) Dose Index Registry (DIR) with the [employer] ([employer]). RADIATION OPTIMIZATION: All CT scans at this facility use at least one of these dose optimization te chniques: automated exposure control; mA and/or kV adjustment per patient size (includes targeted exa ms where dose is matched to clinical indication); or iterative reconstruction.
--- NOTE | 2022-11-23 10:45 | RT.EKG_ITS ---
APPROVED REPORT Exam: Resting ECG Reason for Exam: ams Patient Location: E HR:95 bpm ECG Measurements Heart Rate 95 AXIS DE [id number] P [id number] QRSd 104 QRS 34 QT 371 T -28 QTc 464 Conclusion Atrial fibrillation...V-rate 82-116, irreg A-activity Ventricular premature complex...V complex w/ short R-R interval Low voltage, extremity leads...all extremity leads <0.5mV Physician: no stemi
--- NOTE | 2022-11-23 10:46 | DI.RAD_ITS ---
Exam(s) XR CHEST 1V IN DI DEPT EXAM: XR CHEST 1V IN DI DEPT CLINICAL HISTORY: ams TECHNIQUE: 2D digital imaging was performed of the chest. One image was obtained. An AP view was ob tained. COMPARISON: CR,XR XR CHEST 1V IN DI DEPT from 12/11/2019 FINDINGS: MEDIASTINUM: Normal. HEART: Normal. PULMONARY VASCULATURE: Normal. LUNGS: No focal consolidating infiltrates. PLEURAL SPACE: No pleural effusion or pneumothorax. BONE:Within normal limits for the patient's age. OTHER FINDINGS:Normal. IMPRESSION: No acute pulmonary findings. DATA REPOSITORY: RADIATION DOSE DELIVERED:
[2022-11-23 10:49] VITALS: BP 146/82; PULSE 85; RESP 15; TEMP 36.3; O2SAT 93
[2022-11-23 11:02] VITALS: RESP 16
[2022-11-23 11:52] LABS: Abs Immature Grans 0.04 10^3/uL (0.0-0.06); Absolute Eosinophil Count 0.13 10^3/uL (0.0-0.7); Absolute Lymphocyte Count 0.81 10^3/uL (1.2-3.4); Absolute Monocyte Count 0.85 10^3/uL (0.1-0.8); Absolute Neutrophil Count 8.21 10^3/uL (1.2-6.7); Eosinophils % 1.3; HCT 49.2 % (40.0-50.0); HGB 15.7 g/dL (13.5-17.5); Immature Grans % 0.4; MCH 27.6 pg (27.0-33.0); MCHC 31.9 % (32.0-36.0); MCV 87 fL (80-95); MPV 9.7 fL (8.0-11.0); Monocytes % 8.4; Neutrophils % 80.9; Platelet Count 192 10^3/uL (130-400); RBC 5.69 10^6/uL (4.36-5.78); RDW 14.1 % (11.8-14.1); RDW-SD 44.3 fL; WBC 10.14 10^3/uL (4.4-10.8)
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
[2022-11-23 12:04] LABS: ALT 12 U/L (16-63); AST 13 U/L (15-37); Albumin 3.2 g/dL (3.4-5.0); Alkaline Phosphatase 96 U/L (46-116); Anion Gap 2.5 mmol/L (3-11); BUN 14 mg/dL (7-18); Bilirubin, Total 0.5 mg/dL (0.2-1.0); CO2 33.5 mmol/L (21.0-32.0); CREATININE 1.2 mg/dL (0.70-1.30); Calcium 8.8 mg/dL (8.5-10.1); Chloride 104 mmol/L (98-107); Estimated GFR 60.38 (mL/min/1.73m2); Glucose 93 mg/dL (74-106); Potassium 4.3 mmol/L (3.5-5.1); Sodium 140 mmol/L (136-145); Total Protein 7.2 g/dL (6.4-8.2)
[2022-11-23 12:06] LABS: INR 2.7 (0.9-1.1); Prothrombin Time 27.4 sec (9.3-11.0)
[2022-11-23 13:26] LABS: Bilirubin Negative (Negative); Blood Trace-intact (Negative); Clarity Clear (Clear); Glucose Negative (Negative); Ketones Negative (Negative); Leukocyte Esterase Negative (Negative); Nitrite Negative (Negative); Urobilinogen 0.2 mg/dL (Up to 0.2)
[2022-11-23] MEDS: OLANZapine 5 MG TAB PO ×2 (13:27→15:38)
[2022-11-23 13:46] LABS: Bacteria Rare HPF (Negative); Epithelial Cells Rare HPF (Negative); WBC 0-2 HPF (0-5)
[2022-11-23 13:47] LABS: C & S Indicated? No; Casts Negative LPF (Negative); Crystals Negative HPF (Negative); Mucus Trace (Negative)
--- NOTE | 2022-11-23 13:49 | NUR.NOTE ---
Nursing Note: PAtient moved from rm4 to rm 9 and a lunch tray was provided for him from [facility]. Patient has a global safety officer to watch over him. Patient is very confused and is unaware of what is happening or where he is. Asks the nurse if he is in trouble and going to prison.
[2022-11-23] MEDS: Haloperidol 5 MG/ML VIAL 2 MG IM (14:48)
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
[2022-11-23] MEDS: QUEtiapine 25 MG TAB PO (16:56)
--- NOTE | 2022-11-23 18:30 | NUR.NOTE ---
Nursing Note: patient sitting quietly with at this time, he has been up to use the toilet x1 with stand by assist. Patient needs step by step directions and modeling when doing ADLs. Patient seems to like looking through magazines and using his lap blanket with buttons, zippers and different fabrics attached. explained that the patient hasn't been going to sleep for the night until [id number] at home. This RN has had pleasant interactions with patient.
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
[2022-11-23] MEDS: Mirtazapine 15 MG TAB 7.5 MG PO (20:04)
[2022-11-23 21:22] VITALS: BP 147/88; PULSE 90; RESP 18; TEMP 36.5; O2SAT 95
[2022-11-23 21:30] VITALS: BP 147/88; PULSE 90; RESP 18; TEMP 36.5; O2SAT 95
[2022-11-24] MEDS: LORazepam 0.5 MG TAB PO ×2 (00:28→20:34)
[2022-11-24 00:47] LABS: INR 2.1 (0.9-1.1); Prothrombin Time 21.4 sec (9.3-11.0)
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
[2022-11-24 06:48] LABS: INR 1.9 (0.9-1.1); Prothrombin Time 19.5 sec (9.3-11.0)
[2022-11-24 07:16] VITALS: BP 124/81; PULSE 95; RESP 16; TEMP 36.7; O2SAT 94
[2022-11-24] MEDS: Metoprolol CR 100 MG TABCR PO (07:53)
[2022-11-24] MEDS: OLANZapine 10 MG TAB PO (07:53)
[2022-11-24] MEDS: dilTIAZem CD 120 MG CAPCR PO (07:53)
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
[2022-11-24 15:04] VITALS: BP 107/72; PULSE 82; RESP 14; TEMP 36.5; O2SAT 97
--- NOTE | 2022-11-24 15:52 | PGE_ITS ---
Date of Service Date of service: 11/24/22 Time of Service: 15:52 Assessment and Plan Assessment and plan (1) Acute delirium: Status: Acute Assessment and plan: No delirium at time of exam. There is no evidence of acute infection. (2) Dementia: Status: Chronic Assessment and plan: Continue Olanzipine He will need placement in a safe and supportive environment.[facility] referral pending (3) Essential hypertension: Status: Chronic Assessment and plan: BP stable, continue outpatient metoprolol and diltiazem. (4) Atrial fibrillation: Assessment and plan: Chronic, on metoprolol and diltiazem for rate control. On warfarin with goal INR 2-3, continue to monitor (5) Discharge planning issues: Status: Acute Assessment and plan: Referral to [facility] pending Discussed with Dr Guidry Subjective Subjective Patient reports: no new complaints Interval history since last seen: Up in the merlos walking with sitter. Pleasant, cooperative. Exam Narrative Exam Narrative: GEN: Alert, disoriented x 3. He is walking in the merlos with sitter, cooperative with exam doesn't follow demands, confused. No acute distress. HEENT: Head atraumatic. Conjunctiva clear, no icterus. PEERL, EOMI. no rhinorrhea. MMM, OP benign. Neck is supple with no masses or lymphadenopathy LUNGS: CTAB with normal effort CV: irregularly irregular with no murmurs, gallops, or rubs. ABD: +BS, soft, NT/ND EXT: no cyanosis, clubbing. 1+ britt edema in ankles. Legs not hot/red MSK: No joint redness or swelling NEURO: CN 2-12 grossly intact. Normal movement of 4 extremities. Normal speech and coordination, steady gait SKIN: No rashes or open wounds. PSYCH: normal mood and affect Objective Last Vital Signs Temp 36.5 C 11/24/22 15:04 Pulse 82 11/24/22 15:04 Resp 14 11/24/22 15:04 BP 107/72 11/24/22 15:04 Pulse Ox 97 11/24/22 15:04 Laboratory Results - last 24 hr 11/24/22 11/24/22 00:22 05:58 PT 21.4 H 19.5 H INR 2.1 H 1.9 H Time Spent with Patient Time Spent with Patient: 25-34 minutes Time was spent: preparing to see the patient(eg.review tests), referring, communicating with other health transitional care manager, indepentently interpreting results, counseling the patient and care coordination
[2022-11-24 18:36] LABS: Source Nasal/Nares
[2022-11-24 19:42] LABS: COVID-19 PCR Negative (Negative)
[2022-11-24] MEDS: Mirtazapine 15 MG TAB 7.5 MG PO (21:43)
[2022-11-24] MEDS: QUEtiapine 25 MG TAB 50 MG PO (21:43)
[2022-11-25 06:49] LABS: INR 1.9 (0.9-1.1); Prothrombin Time 18.9 sec (9.3-11.0)
[2022-11-25 07:30] VITALS: BP 107/72; PULSE 82; RESP 14; TEMP 36.5; O2SAT 97
[2022-11-25] MEDS: Acetaminophen 500 MG TAB 1000 MG PO (07:47)
[2022-11-25] MEDS: Metoprolol CR 100 MG TABCR PO (07:47)
[2022-11-25] MEDS: OLANZapine 10 MG TAB PO (07:47)
[2022-11-25] MEDS: dilTIAZem CD 120 MG CAPCR PO (07:48)
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
--- NOTE | 2022-11-25 12:54 | CMDISCH_ITS ---
Date of service: 11/25/22 Time of Service: 12:54 LACE Index Scoring Tool Questions: Length of Stay (in days): 2 Was the patient admitted via the E.D.?: Yes Comorbidities: Dementia E.D. Visits: 1 Answers: Total Score: 9 Risk of Readmission: Low Risk Care Management Discharge Plan Reason for Hospitalization: acute delirium Discharge Plan: Jackson will be transferred to [facility] today. He will transport via [facility], coordinated by CM. Patient/Family Education Needs: Review of discharge instructions, limitations, activity, follow up plan, discuss Ask Me Three
== END 2022-11-25 08:52 ==
LOC: ER 19:23 → MS 21:16
PROVIDERS: Nurse Practitioner Family; Physician Assistant; Admitting Provider Family Medicine; Emergency Provider Student in an Organized Health Care Education/Training Program; PCP Family Medicine; Visit Provider Family Medicine
DX: F03.911 Unspecified dementia, unspecified severity, with agitation (principal); F05 Delirium due to known physiological condition; I10 Essential (primary) hypertension; I48.20 Chronic atrial fibrillation, unspecified; Z79.01 Long term (current) use of anticoagulants; K40.90 Unilateral inguinal hernia, without obstruction or gangrene, not specified as recurrent; H91.90 Unspecified hearing loss, unspecified ear; G25.9 Extrapyramidal and movement disorder, unspecified; Z66 Do not resuscitate
CPT/HCPCS: 36415; 80053; 87635; 93005; 96372; 99285; 70450; 71045; 81003; 81015; 85025; 85610; 93010; 99232; 99239; G0378; J1630